=== PATIENT | male | born 1960 | race Caucasian/White ===

== ENCOUNTER 2017-05-16 17:42 | Observation (INO) ==
[2017-05-16 20:05] LABS: Basophils % 0.4 %; Eosinophils # 0.4 K/mcL (0.0-0.6); Eosinophils % 4.8 %; Hematocrit 42.2 % (37.5-50.1); Hemoglobin 13.5 g/dL (12.9-16.9); Immature Granulocytes % 0.2 % (0-4); Immature Platelets 3.9 % (1.1-6.1); Lymphocytes # 2.6 K/mcL (0.6-4.6); Lymphocytes % 31.9 %; Mean Corpuscular Hemoglobin 29.4 pg (28.0-33.3); Mean Corpuscular Volume 91.9 fL (83.0-100.0); Mean Platelet Volume 9.8 fL (9.4-12.4); Monocytes # 0.7 K/mcL (0.0-1.3); Monocytes % 8.5 %; Neutrophils # 4.4 K/mcL (1.6-8.9); Platelet Count 213 K/mcL (140-400); Red Blood Count 4.59 M/mcL (4.19-5.50); Red Cell Distribution Width 13.1 % (11.5-14.5); Segmented Neutrophils % 54.2 %
[2017-05-16 20:09] LABS: INR 1.1; Prothrombin Time 11.5 Seconds (9.4-12.1)
[2017-05-16 20:12] LABS: Activated Partial Thrombo Time 32.4 Seconds (26.0-36.0)
[2017-05-16 20:17] LABS: BUN/Creatinine Ratio 21 (6-26); Blood Urea Nitrogen 23 mg/dL (8-26); Calcium 9.3 mg/dL (8.6-10.8); Carbon Dioxide 26 mEq/L (19-29); Chloride 106 mEq/L (98-109); Glucose 98 mg/dL (70-99); Osmolality,Calculated 294 (280-300); Potassium 3.7 mEq/L (3.5-4.5); Sodium 140 mEq/L (136-145); eGFR For African Americans > 60 (> 60); eGFR For Non-African Americans > 60 (> 60)
--- NOTE | 2017-05-16 23:02 | Emergency Department Note ---
Disposition Clinical Impression: Arrhythmia Qualifiers: Arrhythmia type: unspecified cardiac arrhythmia Qualified Code(s): I49.9 - Cardiac arrhythmia, unspecified Disposition: Admitted As Inpatient Condition: Good Chest Pain HPI - General Chief Complaint: ED Chest Pain Stated Complaint: CP Time Seen by Provider: 05/16/17 20:25 Source: patient Limitations: no limitations Vital Signs Reviewed: Yes Nursing Notes Reviewed: Yes - History of Present Illness HPI Narrative: Patient presents today from preop clearance for evaluation of abnormal EKG. EKG in the emergency department shows sinus rhythm with concern for second- degree AV block. Patient has a history of coronary bypass. Patient has a history of hypertension and hyperlipidemia. Takes aspirin but is not otherwise anticoagulated. His had intermittent episodes where he feels dizzy but does not state significant in nature. Patient has not had chest pain or shortness of breath. Patient does have some residual tenderness from previous midline incision. Patient has chronic back and knee pain which she is requesting his home medication. Patient does have previous blood work from both [facility] as well as [facility]. Previous diagnosis of irregular heartbeat was atrial fibrillation. Patient's baseline was very irregular and hard to distinguish any sort of P waves. EKG today is much more clear with irregularly spaced P waves in correlation to the QRS. Patient's initial blood work will be drawn and compared to previous. If blood work is normal discuss with cardiology disposition. Severity scale (1-10): 0 - Related Data Home Medications Medication Instructions Recorded Confirmed Albuterol Neb [Proventil Neb] 2.5 mg IH Q4HR 10/31/15 05/17/17 Albuterol Sulfate [Albuterol 1 - 2 puff IH Q4HR 10/31/15 05/17/17 Inhaler] Aspirin 325 mg PO DAILY 10/31/15 05/17/17 Budesonide/Formoterol 160/4.5 2 puff IH BIDR 10/31/15 05/17/17 [Symbicort 160/4.5] Calcium Acetate [Phos-LO] 1,334 mg PO TIDWM 10/31/15 05/17/17 Carvedilol [Coreg] 25 mg PO BID 10/31/15 05/17/17 Cholecalciferol (Vitamin D3) 2,000 unit PO DAILY 10/31/15 05/17/17 [Vitamin D3] Cilostazol [Pletal] 100 mg PO BID 10/31/15 05/17/17 Dapagliflozin Propanediol [Farxiga] 5 mg PO DAILY 10/31/15 05/17/17 Docusate [Colace] 100 mg PO BID 10/31/15 05/17/17 Escitalopram [Lexapro] 10 mg PO DAILY 10/31/15 05/17/17 Ferrous Sulfate 325 mg PO BID 10/31/15 05/17/17 Fluticasone Propionate [Flovent 110 mcg IH BID 10/31/15 05/17/17 Hfa] Furosemide [Lasix] 40 mg PO BID 10/31/15 05/17/17 Gabapentin [Neurontin] 800 mg PO TID 10/31/15 05/17/17 Insulin ASPART [Novolog Flexpen] 14 - 18 unit SQ TIDWM 10/31/15 05/17/17 Insulin Glargine,Hum.rec.anlog 40 unit SQ QPM 10/31/15 05/17/17 [Lantus Solostar] Insulin Glargine,Hum.rec.anlog 42 unit SQ QAM 10/31/15 05/17/17 [Lantus Solostar] Loratadine [Claritin] 10 mg PO DAILY 10/31/15 05/17/17 Magnesium Oxide [Magnesium] 400 mg PO TID 10/31/15 05/17/17 Meclizine [Antivert] 25 mg PO DAILY PRN 10/31/15 05/17/17 Montelukast [Singulair] 10 mg PO DAILY 10/31/15 05/17/17 Omeprazole [PriLOSEC] 20 mg PO DAILY 10/31/15 05/17/17 Ondansetron HCl [Zofran] 4 mg PO Q8H PRN 10/31/15 05/17/17 Oxycodone HCl 20 mg PO TID 10/31/15 05/17/17 Pravastatin Sodium [Pravachol] 20 mg PO DAILY 10/31/15 10/31/15 Sennosides/Docusate Sodium [Senna 2 tab PO HS 10/31/15 05/17/17 Plus] Sodium Bicarbonate 1,300 mg PO TID 10/31/15 05/17/17 Tamsulosin [Flomax] 0.8 mg PO DAILY 10/31/15 05/17/17 Allergies Allergy/AdvReac Type Severity Reaction Status Date / Time clopidogrel [From Plavix] Allergy Hives Verified 05/16/17 16:49 Review of Systems: CONSTITUTIONAL: No weight loss, fever, chills, weakness or fatigue. HEENT: Eyes: No visual changes. Ears, Nose, Throat: No hearing loss, difficulty talking or unable to swallow. SKIN: No rash or itching. CARDIOVASCULAR: No chest pain, chest pressure or chest discomfort. No palpitations or edema. RESPIRATORY: No shortness of breath, cough or sputum. GASTROINTESTINAL: No anorexia, nausea, vomiting or diarrhea. No abdominal pain or blood. GENITOURINARY: No burning on urination or hematuria. NEUROLOGICAL: Occasional dizziness No headache, syncope, paralysis, ataxia, numbness or tingling in the extremities. No change in bowel or bladder control. MUSCULOSKELETAL: Chronic back pain Chest Pain PMH - Past Medical History Medical history: Reports: COPD, coronary artery disease, diabetes, GERD, hyperlipidemia, hypertension, myocardial infarction, renal disease, other Psychiatric history: Reports: no psych history - Social History Smoking Status: Never smoker Alcohol use: Reports: rarely Drug use: Reports: none Physical Exam General appearance: NAD, conversant Eyes: anicteric sclerae, moist conjunctivae; PERRL HENT: Atraumatic; oropharynx clear with moist mucous membranes and no mucosal ulcerations Neck: Normal inspection; Trachea midline; FROM, supple Lungs: CTA, with normal respiratory effort and no intercostal retractions CV: irregular no rubs or murmurs Abdomen: Soft, non-tender; no rebound or gaurding Extremities: No peripheral edema or extremity lymphadenopathy Skin: Normal temperature; no rash, ulcers or lesions Psych: Appropriate mood and affect Neuro: alert and oriented to person, place and time - General Limitations: no limitations General appearance: alert Course - Consultations Consultation #1: Discussed with cardiology. Patient has grouped beats with appearance of second- degree block. They recommend keeping the patient on telemetry with them consult and tomorrow. Vital Signs Temperature 98 F 05/16/17 18:13 Pulse Rate 73 05/16/17 18:13 Respiratory Rate 16 05/16/17 18:13 Blood Pressure 125/87 05/16/17 18:13 O2 Sat by Pulse Oximetry 98 05/16/17 18:13 Temperature 97.6 F 05/17/17 03:32 Pulse Rate 92 05/17/17 03:32 Respiratory Rate 18 05/17/17 03:32 Blood Pressure 188/99 05/17/17 03:32 O2 Sat by Pulse Oximetry 94 05/17/17 03:32 Oxygen Delivery Oxygen Delivery Room Air Chest Pain - Medical Records Medical records reviewed: Yes I reviewed the patient's medical records. - Lab Data Lab results reviewed: Yes I reviewed the patient's lab results. Result diagrams: 05/16/17 19:56 05/16/17 19:56 Lab Results 05/16/17 05/16/17 05/16/17 Range/Units 19:56 19:56 19:56 WBC 8.1 (4.3-11.1) K/mcL RBC 4.59 (4.19-5.50) M/mcL Hgb 13.5 (12.9-16.9) g/dL Hct 42.2 (37.5-50.1) % MCV 91.9 (83.0-100.0) fL MCH 29.4 (28.0-33.3) pg MCHC 32.0 (31.6-35.5) g/dL RDW 13.1 (11.5-14.5) % Plt Count 213 (140-400) K/mcL MPV 9.8 (9.4-12.4) fL Immature Gran % 0.2 (0-4) % Seg Neutrophils % 54.2 % Lymphocytes % 31.9 % Monocytes % 8.5 % Eosinophils % 4.8 % Basophils % 0.4 % Neutrophils # 4.4 (1.6-8.9) K/mcL Lymphocytes # 2.6 (0.6-4.6) K/mcL Monocytes # 0.7 (0.0-1.3) K/mcL Eosinophils # 0.4 (0.0-0.6) K/mcL Basophils # 0.0 (0.0-0.2) K/mcL Immature Plt Fraction 3.9 (1.1-6.1) % PT 11.5 (9.4-12.1) Seconds INR 1.1 APTT 32.4 (26.0-36.0) Seconds Sodium (136-145) mEq/L Potassium (3.5-4.5) mEq/L Chloride (98-109) mEq/L Carbon Dioxide (19-29) mEq/L BUN (8-26) mg/dL Creatinine (0.72-1.25) mg/dL Est GFR ( Amer) (> 60) Est GFR (Non-Af Amer) (> 60) BUN/Creatinine Ratio (6-26) Glucose (70-99) mg/dL Calculated Osmolality (280-300) Calcium (8.6-10.8) mg/dL Troponin I (0-0.03) ng/mL B-Natriuretic Peptide 168 H (0-100) pg/mL 05/16/17 05/16/17 Range/Units 19:56 19:56 WBC (4.3-11.1) K/mcL RBC (4.19-5.50) M/mcL Hgb (12.9-16.9) g/dL Hct (37.5-50.1) % MCV (83.0-100.0) fL MCH (28.0-33.3) pg MCHC (31.6-35.5) g/dL RDW (11.5-14.5) % Plt Count (140-400) K/mcL MPV (9.4-12.4) fL Immature Gran % (0-4) % Seg Neutrophils % % Lymphocytes % % Monocytes % % Eosinophils % % Basophils % % Neutrophils # (1.6-8.9) K/mcL Lymphocytes # (0.6-4.6) K/mcL Monocytes # (0.0-1.3) K/mcL Eosinophils # (0.0-0.6) K/mcL Basophils # (0.0-0.2) K/mcL Immature Plt Fraction (1.1-6.1) % PT (9.4-12.1) Seconds INR APTT (26.0-36.0) Seconds Sodium 140 (136-145) mEq/L Potassium 3.7 (3.5-4.5) mEq/L Chloride 106 (98-109) mEq/L Carbon Dioxide 26 (19-29) mEq/L BUN 23 (8-26) mg/dL Creatinine 1.08 (0.72-1.25) mg/dL Est GFR ( Amer) > 60 (> 60) Est GFR (Non-Af Amer) > 60 (> 60) BUN/Creatinine Ratio 21 (6-26) Glucose 98 (70-99) mg/dL Calculated Osmolality 294 (280-300) Calcium 9.3 (8.6-10.8) mg/dL Troponin I 0.01 (0-0.03) ng/mL B-Natriuretic Peptide (0-100) pg/mL - Radiology Data Radiology results reviewed: Yes I reviewed the patient's radiology results. - EKG Data EKG attestation: Yes I reviewed and interpreted this EKG. EKG results narrative: EKG shows sinus rhythm with second-degree AV block concern for Mobitz type II. Ventricular rate 71. QRS 106. QTC 453. EKG change from previous of atrial fibrillation with abnormal baseline. On the rhythm strip there are P waves are present however there is irregularly spacing and not correlate to the QRS. It appeared to be grouped several groupings. Attestation Statement - Attestation Attestation: I examined this patient and my medical decision-making was reviewed with the Resident Physician, Dr. Page. I agree with the documented findings, disposition and treatment plan as described except to the extent set forth below. Patient is a pleasant 56-year-old white male who presents to the emergency department today sent from the outpatient lab area for an abnormal EKG. Patient was there for preop clearance with labs and EKG to be done. Patient has been feeling fine he denies any concerning symptoms today no chest pain pressure or heaviness no shortness of breath, no palpitations, no lightheadedness or dizziness, no syncopal episodes, no abdominal pain or back pain. Patient has history of reported atrial fibrillation, is on aspirin but no other anticoagulants. Patient's vital signs are stable on arrival and he is in no acute distress. I agree with pt's Physical exam findings as documented. Patient's EKG shows Mobitz secondary AV block. This is a new finding compared to prior EKGs. Patient's lab evaluation and chest x-ray are both unremarkable. We contacted Dr. Solano who is on for cardiology this evening and reviewed the EKG with him. He recommended that the patient be admitted to the hospital and they will consult to see the patient in the morning. Case was discussed with the hospitalist who accepted the patient for admission.
[2017-05-16] MEDS ORDERED: *HR* OxyCODONE Immed Rel 5 MG TABLET PO ONE (23:06)
[2017-05-16] MEDS ORDERED: *HR* Dextrose 50 % in Water (Syg) 50 ML SYRINGE IVP PRN (23:26)
[2017-05-16] MEDS ORDERED: D5% in Water 1,000 ML IVC PRN (23:26)
[2017-05-16] MEDS ORDERED: Dextrose Gel 15 GM PO PRN ×2 (23:26)
[2017-05-17] MEDS: Albuterol 2.5 MG/3 ML NEBULIZER IH SCH ×6 (03:46→23:09)
[2017-05-17] MEDS ORDERED: *HR* OxyCODONE Immed Rel 15 MG TABLET PO PRN (06:21)
[2017-05-17] MEDS: OxyCODONE Immed Rel 15 MG, OxyCODONE Immed Rel 5 MG PO PRN ×3 (07:23→23:18)
[2017-05-17] MEDS ORDERED: Insulin DETEMIR 100 UNIT/ML X5UNITS SQ SCH ×2 (09:00→09:45)
[2017-05-17] MEDS: Aspirin 325 MG TABLET PO SCH (09:01)
[2017-05-17] MEDS: Insulin LISPRO 300 UNITS/3 ML VIAL SQ SCH ×5 (09:01→17:19)
[2017-05-17] MEDS ORDERED: Ondansetron ODT 4 MG TAB.RAPDIS PO PRN (09:11)
[2017-05-17] MEDS ORDERED: Budesonide/Formoterol 80/4.5 MDI IH SCH (09:15)
[2017-05-17] MEDS ORDERED: NON-FORMULARY MEDICATION 1 EACH EACH (Oxycodone Hcl [Oxycodone Hcl] 20 MG) PO SCH (09:15)
[2017-05-17] MEDS ORDERED: INSULIN DEGLUDEC SQ SCH (09:15)
[2017-05-17] MEDS ORDERED: Beclomethasone 80mcg MDI IH SCH (10:00)
[2017-05-17] MEDS ORDERED: Budesonide/Formoterol 160/4.5 MDI IH SCH (10:00)
[2017-05-17] MEDS: Budesonide/Formoterol 80/4.5 MDI IH SCH ×2 (10:26→20:04)
[2017-05-17] MEDS: Fluticasone Propionate Nasal 50 MCG/SPRAY BOTTLE NS SCH (11:16)
[2017-05-17] MEDS: Furosemide 40 MG TABLET PO SCH ×2 (11:17→17:18)
[2017-05-17] MEDS: Loratadine 10 MG TABLET PO SCH (11:17)
[2017-05-17] MEDS: Magnesium Oxide 400 MG TABLET PO SCH ×3 (11:18→20:33)
[2017-05-17] MEDS: Gabapentin 400 MG CAPSULE PO SCH ×3 (11:18→20:33)
[2017-05-17] MEDS: Cholecalciferol (D-3) 1,000 UNIT TABLET PO SCH (11:18)
[2017-05-17] MEDS: Calcium Acetate 667 MG CAPSULE PO SCH ×2 (11:23→17:18)
--- NOTE | 2017-05-17 12:03 | Cardiology Consult Note ---
Date of Encounter: 05/17/17 Time of Encounter: 11:00 Assessment and Plan (1) Pre-operative cardiovascular examination Current Visit: Yes Status: Acute Known h/o CAD. LHC one year ago showed patent 3/3 bypass grafts. Denies CV symptoms. WIll check TTE. EKG shows SR 1st degree block. Patient has long history of this . Beta-mara discontinued. If no change in LV function he will be acceptable risk for surgery. (2) First degree atrioventricular block by electrocardiogram Current Visit: Yes Status: Acute EKG shows SR with first degree AV block. PAC and small sinus pauses or block PAC seen. No significant pauses. 24 hour telemetry review shows SR with first degree AV block. Occasional blocked PAC. Avg HR 78 bpm. Min HR is 50 bpm. Patient has history of first degree AV block. [place] appears to be longer than previous. Patient is asymptomatic.No afib seen and patient denies history of afib. Recommend stopping carvedilol. (3) CAD (coronary artery disease) Current Visit: No Status: Chronic H/o 3V CABG and previous PCI. Last LHC at [facility] one year ago showed patent bypass grafts. Denies chest pain. Continue asa and statin. No bb due to prolonged first degree block. Qualifiers: Coronary Disease-Associated Artery/Lesion type: [place] artery [place] vs. transplanted heart: [place] heart Associated angina: without angina Qualified Code(s): I25.10 - Atherosclerotic heart disease of [place] coronary artery without angina pectoris Discussion w patient/family: The assessment and plan as outlined above was discussed with the patient and/or family members who expressed understanding and agreement. All questions were answered. Thank you for involving us in the care of your patient. Please call with any questions. History of Present Illness Consult date: 05/17/17 Requesting physician: Jordan Hernandez Consult reason: abnormal EKG Chief complaint: Abnormal EKG History of present illness: Mr. Borges is a 56 year old male with a history of 3V CABG in 2012, previous PCI, DCHF, HTN, HLD, and DM type II. He was sent from [facility] office when he was seen to have an abnormal EKG thought to be afib. Once in ER he was confirmed to not have afib but possible second degree block. Cardiology consulted for evaluation. Patient denies chest pain, SOB, or palpitations. Denies orthopnea, weight gain, or PND. C/o RLE edema after injury. Reports 20 lb weight loss in the past two months due to dieting. He has occasional dizziness when standing too quickly. Denies history of afib. He follows at [facility] for cardiology. He was seen one year ago for syncopal episode. He was found to have bradycardia and his beta-mara was discontinued. Since that time he was restarted on low dose carvedilol. Denies recurrent syncopal event. Previous cardiac testing- TTE-10/2015- EF 55-60%. Mild MR. Moderate diastolic dysfunction. LHC 04/21/16 at [facility]- Normal LV Ao gradient. Moderatley elevated LVEDP, 24-25 mmHg. Severe three vessel CAD. 3/3 patent bypass grafts patent (SVG- OM1, SVG- PDA, HAUSER- LAD). Past Med Surg Social Fam HX - Past Medical History Medical history: COPD, coronary artery disease, diabetes, GERD, hyperlipidemia, hypertension, renal disease, other Psychiatric history: no psych history - Social History Smoking Status: Never smoker Smokeless Tobacco Status: No Alcohol use: rarely Drug use: none - Family History Father Living Status: Age at : 78 Hx Family Cardiac Disorders: Yes Mother Living Status: Age at : 78 Hx Family Musculoskeletal Disorders: Yes Medications and Allergies Albuterol Neb [Proventil Neb] 2.5 mg IH Q4HR 10/31/15 [History] Albuterol Sulfate [Albuterol Inhaler] 1 - 2 puff IH Q4HR 10/31/15 [History] Aspirin 325 mg PO DAILY 10/31/15 [History] Calcium Acetate [Phos-LO] 1,334 mg PO TIDWM 10/31/15 [History] Cholecalciferol (Vitamin D3) [Vitamin D3] 2,000 unit PO DAILY 10/31/15 [History] Docusate [Colace] 100 mg PO BID 10/31/15 [History] Escitalopram [Lexapro] 10 mg PO DAILY 10/31/15 [History] Ferrous Sulfate 325 mg PO BID 10/31/15 [History] Fluticasone Propionate [Flovent Hfa] 110 mcg IH BID 10/31/15 [History] Furosemide [Lasix] 40 mg PO BID 10/31/15 [History] Gabapentin [Neurontin] 800 mg PO TID 10/31/15 [History] Insulin ASPART [Novolog Flexpen] 14 - 18 unit SQ TIDWM 10/31/15 [History] Loratadine [Claritin] 10 mg PO DAILY 10/31/15 [History] Magnesium Oxide [Magnesium] 400 mg PO TID 10/31/15 [History] Meclizine [Antivert] 25 mg PO DAILY PRN 10/31/15 [History] Montelukast [Singulair] 10 mg PO DAILY 10/31/15 [History] Omeprazole [PriLOSEC] 20 mg PO DAILY 10/31/15 [History] Ondansetron HCl [Zofran] 4 mg PO Q8H PRN 10/31/15 [History] Oxycodone HCl 20 mg PO TID 10/31/15 [History] Sennosides/Docusate Sodium [Senna Plus] 2 tab PO HS 10/31/15 [History] Sodium Bicarbonate 1,300 mg PO TID 10/31/15 [History] Tamsulosin [Flomax] 0.8 mg PO DAILY 10/31/15 [History] Atorvastatin [Lipitor] 40 mg PO HS 05/17/17 [History] Budesonide/Formoterol 80/4.5 [Symbicort 80/4.5] 2 puff IH BID 05/17/17 [History ] Dapagliflozin Propanediol [Farxiga] 10 mg PO DAILY 05/17/17 [History] Insulin Degludec [Tresiba Flextouch U-200] 82 units SQ DAILY 05/17/17 [History] rOPINIRole [Requip] 1 mg PO HS 05/17/17 [History] 3 Allergy/AdvReac Type Severity Reaction Status Date / Time clopidogrel [From Plavix] Allergy Hives Verified 05/16/17 16:49 All Systems Review: A 10-system review of systems was performed and is negative for pertinent findings except as documented above in the HPI. Physical Examination Vital Signs, Last 4 Hours Temp Pulse Resp BP Pulse Ox 05/17/17 11:01 97.9 F 111 18 152/66 97 General: Conversant, No Apparent Distress HEENT: Atraumatic, Normocephaly, Mucus Membranes Moist Neck: No JVD, Normal carotid pulses Cardiac: Reg Rate and Rhythm, Normal S1 and S2, No Murmur Lungs: Normal Breath Sounds, No Wheeze, Rales, Rhonchi Neuro: Alert and responsive, No focal deficits noted Abdomen: Soft, Non-Tender Skin: No rashes noted on visualized skin Musculoskeletal: No Chest Wall Tenderness Extremities: No Clubbing, No Cyanosis, No Edema, Normal Pulses Results 05/16/17 19:56 05/16/17 19:56 - Imaging and Cardiology Echo: report reviewed Cardiac cath: report reviewed - EKG Interpretation EKG results cardiology: personally reviewed Consult Discharge Plan - Plan Referrals: César Yuan MD [Primary Care Provider] -
--- NOTE | 2017-05-17 13:45 | Internal Med History&Physical ---
Date of Encounter: 05/17/17 Time of Encounter: 08:30 Assessment and Plan (1) First degree atrioventricular block by electrocardiogram Current visit: Yes Status: Chronic Place in observation. Echo today Avoid AVN blocking agents Appreciate cardiology input. Anticipate discharge after completion of echo if no other issues - either today or in AM. (2) CAD (coronary artery disease) Current visit: No Status: Chronic Continue home meds Avoid AVN blocking agents Qualifiers: Coronary Disease-Associated Artery/Lesion type: [place] artery [place] vs. transplanted heart: [place] heart Associated angina: without angina Qualified Code(s): I25.10 - Atherosclerotic heart disease of [place] coronary artery without angina pectoris (3) Diabetes mellitus, type II Current visit: No Status: Chronic Continue accuchecks and coverage Qualifiers: Diabetes mellitus complication status: with unspecified complications Diabetes mellitus intermediate accountant insulin use: without intermediate accountant use Qualified Code( s): E11.8 - Type 2 diabetes mellitus with unspecified complications (4) Chronic back pain Current visit: Yes Status: Chronic Continue home meds Qualifiers: Back pain location: low back pain Back pain laterality: bilateral Sciatica presence: unspecified whether sciatica present Qualified Code(s): M54.5 - Low back pain; G89.29 - Other chronic pain; G89.29 - Other chronic pain Internal Medicine - H&P: HPI Chief complaint: abnormal EKG Admitted From: Emergency Dept Plans for Post Hospital Care: Home History of present illness: Mr. Borges is a 56 year old male with hx of CAD s/p CABG as well as HTN sent to ED from [facility] due to abnormal EKG. He was being seen for planned achilles tendon repair. EKG at [facility] was concerning for a fib and repeat in ED was concerning for second degree Mobitz 2 block. He denied CP, SOB, cough or any other symptoms. In ED he was evaluated and placed in observation. At this time he is resting comfortably. He has no complaints. Past Med Surg Social Fam HX - Past Medical History Medical history: COPD, coronary artery disease, diabetes, GERD, hyperlipidemia, hypertension, renal disease, other Psychiatric history: no psych history - Past Surgical History Surgical History: coronary bypass (CABG) - Social History Smoking Status: Never smoker Smokeless Tobacco Status: No Alcohol use: rarely Drug use: none - Family History Father Living Status: Age at : 78 Hx Family Cardiac Disorders: Yes Mother Living Status: Age at : 78 Hx Family Musculoskeletal Disorders: Yes Internal Medicine - H&P: Meds Albuterol Neb [Proventil Neb] 2.5 mg IH Q4HR 10/31/15 [History] Albuterol Sulfate [Albuterol Inhaler] 1 - 2 puff IH Q4HR 10/31/15 [History] Aspirin 325 mg PO DAILY 10/31/15 [History] Calcium Acetate [Phos-LO] 1,334 mg PO TIDWM 10/31/15 [History] Cholecalciferol (Vitamin D3) [Vitamin D3] 2,000 unit PO DAILY 10/31/15 [History] Docusate [Colace] 100 mg PO BID 10/31/15 [History] Escitalopram [Lexapro] 10 mg PO DAILY 10/31/15 [History] Ferrous Sulfate 325 mg PO BID 10/31/15 [History] Fluticasone Propionate [Flovent Hfa] 110 mcg IH BID 10/31/15 [History] Furosemide [Lasix] 40 mg PO BID 10/31/15 [History] Gabapentin [Neurontin] 800 mg PO TID 10/31/15 [History] Insulin ASPART [Novolog Flexpen] 14 - 18 unit SQ TIDWM 10/31/15 [History] Loratadine [Claritin] 10 mg PO DAILY 10/31/15 [History] Magnesium Oxide [Magnesium] 400 mg PO TID 10/31/15 [History] Meclizine [Antivert] 25 mg PO DAILY PRN 10/31/15 [History] Montelukast [Singulair] 10 mg PO DAILY 10/31/15 [History] Omeprazole [PriLOSEC] 20 mg PO DAILY 10/31/15 [History] Ondansetron HCl [Zofran] 4 mg PO Q8H PRN 10/31/15 [History] Oxycodone HCl 20 mg PO TID 10/31/15 [History] Sennosides/Docusate Sodium [Senna Plus] 2 tab PO HS 10/31/15 [History] Sodium Bicarbonate 1,300 mg PO TID 10/31/15 [History] Tamsulosin [Flomax] 0.8 mg PO DAILY 10/31/15 [History] Atorvastatin [Lipitor] 40 mg PO HS 05/17/17 [History] Budesonide/Formoterol 80/4.5 [Symbicort 80/4.5] 2 puff IH BID 05/17/17 [History ] Dapagliflozin Propanediol [Farxiga] 10 mg PO DAILY 05/17/17 [History] Insulin Degludec [Tresiba Flextouch U-200] 82 units SQ DAILY 05/17/17 [History] rOPINIRole [Requip] 1 mg PO HS 05/17/17 [History] 3 Allergy/AdvReac Type Severity Reaction Status Date / Time clopidogrel [From Plavix] Allergy Hives Verified 05/16/17 16:49 All Systems PM: A 10-system review of systems was performed and is negative for pertinent findings except as documented above in the HPI. - Constitutional Constitutional: no chills, no fatigue, no malaise - EENT Eyes: no diplopia, no dry eye, no loss of vision Ears: no decreased hearing Nose, mouth and throat: no dry mouth, no mouth pain, no sore throat - Cardiovascular Cardiovascular ROS IM: no chest pain, no dyspnea, no dyspnea on exertion, no edema, no orthopnea, no syncope - Respiratory Respiratory: no cough, no dyspnea on exertion, no wheezing - Gastrointestinal Gastrointestinal: no abdominal pain, no constipation, no diarrhea, no melena - Genitourinary Genitourinary ROS male: no dysuria, no scrotal swelling, no urinary incontinence - Musculoskeletal Musculoskeletal ROS IM: arthralgias, back pain, limited range of motion, no numbness - Integumentary Integumentary IM: no erythema, no rash - Neurological Neurological ROS: restless legs, no confusion, no dizziness, no numbness - Endocrine Endocrine IM: no cold intolerance, no heat intolerance - Hematologic/Lymphatic Hematologic/Lymphatic: no easy bleeding - Allergic/Immunologic Allergic/Immunologic: no itchy eyes - Constitutional Vitals: Temp Pulse Resp BP Pulse Ox 97.9 F 111 18 152/66 97 05/17/17 11:01 05/17/17 11:01 05/17/17 11:01 05/17/17 11:01 05/17/17 11:01 General appearance: Present: A&O X 3, answers questions appropriately - Head Head exam: Present: atraumatic, normocephalic - Eye Eye exam: Present: EOMI, PERRL, conjuntiva pink - ENT ENT exam: Present: mucous membranes moist - Neck Neck exam general surgery: Absent: lymphadenopathy, thyromegaly - Respiratory Respiratory exam: Present: decreased breath sounds, rhonchi. Absent: rales, wheezes - Cardiovascular Cardiovascular exam: Present: bradycardia, irregular rhythm - GI/Abdominal GI/Abdominal exam: Present: soft. Absent: mass, tenderness - Extremities Exam Extremities exam: Present: warm. Absent: tenderness - Neurological Exam Neurological exam: Present: alert, oriented X3, no focal deficits - Skin Skin exam: Present: dry, warm. Absent: rash Internal Med - H&P Results - Labs CBC & Chem 7: 05/16/17 19:56 05/16/17 19:56
--- NOTE | 2017-05-17 18:00 | Electrocardiograph Report ---
[place] [id number] Test Date: 2017-05-16 Pat Name: Erik Borges Department: 103 Room: 2A25 Gender: M Salesperson Wigs: FELIZ : 1960 Requested By: Mauricio Vieira Order Number: [id number] Reading MD: Ra Soares MD Measurements Intervals [place] Rate: 71 P: CA: 0 QRS: -47 QRSD: 106 T: 59 QT: 431 QTc: 453 Interpretive Statements SINUS RHYTHM WITH 2ND DEGREE AV BLOCK, MOBITZ TYPE I LEFT ANTERIOR FASCICULAR BLOCK Poor R wave progression Electronically Signed On 05-17-2017 17:58:47 EST by Ra Soares MD
[2017-05-17] MEDS ORDERED: Insulin LISPRO 300 UNITS/3 ML VIAL SQ SCH (21:00)
[2017-05-17] MEDS ORDERED: rOPINIRole 1 MG TABLET PO SCH (21:00)
[2017-05-17] MEDS ORDERED: Sennosides/Docusate Sodium TABLET PO SCH (21:00)
[2017-05-18] MEDS: Albuterol 2.5 MG/3 ML NEBULIZER IH SCH ×3 (03:54→08:16)
[2017-05-18] MEDS ORDERED: Albuterol 2.5 MG/3 ML NEBULIZER IH PRN (08:02)
[2017-05-18] MEDS: Budesonide/Formoterol 80/4.5 MDI IH SCH (08:03)
[2017-05-18] MEDS: Calcium Acetate 667 MG CAPSULE PO SCH ×2 (08:47→12:08)
[2017-05-18] MEDS: Loratadine 10 MG TABLET PO SCH (08:47)
[2017-05-18] MEDS: Magnesium Oxide 400 MG TABLET PO SCH (08:48)
[2017-05-18] MEDS: OxyCODONE Immed Rel 15 MG, OxyCODONE Immed Rel 5 MG PO PRN (08:48)
[2017-05-18] MEDS: Furosemide 40 MG TABLET PO SCH (08:48)
[2017-05-18] MEDS: Cholecalciferol (D-3) 1,000 UNIT TABLET PO SCH (08:48)
[2017-05-18] MEDS: Fluticasone Propionate Nasal 50 MCG/SPRAY BOTTLE NS SCH (08:49)
[2017-05-18] MEDS: Aspirin 325 MG TABLET PO SCH (08:49)
[2017-05-18] MEDS: Gabapentin 400 MG CAPSULE PO SCH (08:49)
[2017-05-18] MEDS: Insulin LISPRO 300 UNITS/3 ML VIAL SQ SCH ×4 (08:50→12:08)
[2017-05-18] MEDS ORDERED: Insulin DETEMIR 100 UNIT/ML X5UNITS SQ SCH (09:00)
--- NOTE | 2017-05-18 10:02 | Cardiology Progress Note ---
Date of Encounter: 05/18/17 Time of Encounter: 10:00 Assessment and Plan (1) Pre-operative cardiovascular examination Current Visit: Yes Status: Acute Known h/o CAD. LHC one year ago showed patent 3/3 bypass grafts. Denies CV symptoms. EKG shows SR with profound 1st degree block. Seen on previous EKG. Echocardiogram completed and shows preserved LV function. No WMA. LVEF 60%. Mild mitral regurgitation. No indication for further testing. Patient is and intermediate risk for planned surgery. (2) First degree atrioventricular block by electrocardiogram Current Visit: Yes Status: Chronic EKG shows SR with profound first degree AV block. PAC and small sinus pauses or block PAC seen. 1st degree block seen on prior EKG. No significant pauses. 24 hour telemetry review shows SR with first degree AV block. Occasional blocked PAC seen. Avg HR 82 bpm. Min HR is 52 bpm at 1750. Patient is asymptomatic. Avoid AV rama blockers. Will schedule with [facility] for out-pt f/u. (3) CAD (coronary artery disease) Current Visit: No Status: Chronic H/o 3V CABG and previous PCI. Last LHC at [facility] one year ago showed patent bypass grafts. Denies chest pain. Continue asa and statin. No bb due to prolonged first degree block. Qualifiers: Coronary Disease-Associated Artery/Lesion type: [place] artery [place] vs. transplanted heart: craig heart Associated angina: without angina Qualified Code(s): I25.10 - Atherosclerotic heart disease of [place] coronary artery without angina pectoris Discussion w patient/family: The assessment and plan as outlined above was discussed with the patient and/or family members who expressed understanding and agreement. All questions were answered. Thank you for involving us in the care of your patient. Please call with any questions. Objective Vital Signs, Last 4 Hours Temp Pulse Resp BP Pulse Ox 05/18/17 08:21 97.9 F 97 16 119/65 96 05/18/17 08:06 16 96 Results 05/16/17 19:56 05/16/17 19:56 Chest X-Ray 05/16/17 18:17 IMPRESSION: No acute process. D/ / Osbaldo Maxwell MD / Osbaldo Maxwell MD Interpreting Provider: Osbaldo Maxwell MD Echocardiogram 05/17/17 12:02 Impressions: LVEF 60%. Normal LV chamber size and function. Asymmetric hypertrophy of the basal septum. No LVOT obstruction. Atypical septal motion consistent with post-operative status. Indeterminate diastolic function. Normal right ventricular structure and function. Mild mitral regurgitation. No evidence of pulmonary hypertension. Left Ventricular Wall Motion: Rest Echo Findings All wall segments showed normal motion. Consult Discharge Plan - Plan Referrals: César Yuan MD [Primary Care Provider] - 05/25/17 9:45 am (YOUR APPOINTMENT FOR has been cancelled and everything will be addressed at your appointment. Thank you!!)
--- NOTE | 2017-05-18 11:57 | Discharge Summary ---
Date of Encounter: 05/18/17 Time of Encounter: 11:57 - Discharge Diagnosis (1) First degree atrioventricular block by electrocardiogram Priority: Primary Status: Chronic (2) CAD (coronary artery disease) Priority: Secondary Status: Chronic Qualifiers: Coronary Disease-Associated Artery/Lesion type: [place] artery [place] vs. transplanted heart: [place] heart Associated angina: without angina Qualified Code(s): I25.10 - Atherosclerotic heart disease of [place] coronary artery without angina pectoris (3) Chronic back pain Priority: Secondary Status: Chronic Qualifiers: Back pain location: low back pain Back pain laterality: bilateral Sciatica presence: unspecified whether sciatica present Qualified Code(s): M54.5 - Low back pain; G89.29 - Other chronic pain; G89.29 - Other chronic pain (4) Diabetes mellitus, type II Priority: Secondary Status: Chronic Qualifiers: Diabetes mellitus complication status: with unspecified complications Diabetes mellitus [employer] insulin use: without half-way use Qualified Code( s): E11.8 - Type 2 diabetes mellitus with unspecified complications - Discharge Medications Home Medications: Albuterol Neb [Proventil Neb] 2.5 mg IH Q4HR 10/31/15 [History] Albuterol Sulfate [Albuterol Inhaler] 1 - 2 puff IH Q4HR 10/31/15 [History] Aspirin 325 mg PO DAILY 10/31/15 [History] Calcium Acetate [Phos-LO] 1,334 mg PO TIDWM 10/31/15 [History] Cholecalciferol (Vitamin D3) [Vitamin D3] 2,000 unit PO DAILY 10/31/15 [History] Docusate [Colace] 100 mg PO BID 10/31/15 [History] Escitalopram [Lexapro] 10 mg PO DAILY 10/31/15 [History] Ferrous Sulfate 325 mg PO BID 10/31/15 [History] Fluticasone Propionate [Flovent Hfa] 110 mcg IH BID 10/31/15 [History] Furosemide [Lasix] 40 mg PO BID 10/31/15 [History] Gabapentin [Neurontin] 800 mg PO TID 10/31/15 [History] Insulin ASPART [Novolog Flexpen] 14 - 18 unit SQ TIDWM 10/31/15 [History] Loratadine [Claritin] 10 mg PO DAILY 10/31/15 [History] Magnesium Oxide [Magnesium] 400 mg PO TID 10/31/15 [History] Meclizine [Antivert] 25 mg PO DAILY PRN 10/31/15 [History] Montelukast [Singulair] 10 mg PO DAILY 10/31/15 [History] Omeprazole [PriLOSEC] 20 mg PO DAILY 10/31/15 [History] Ondansetron HCl [Zofran] 4 mg PO Q8H PRN 10/31/15 [History] Oxycodone HCl 20 mg PO TID 10/31/15 [History] Sennosides/Docusate Sodium [Senna Plus] 2 tab PO HS 10/31/15 [History] Sodium Bicarbonate 1,300 mg PO TID 10/31/15 [History] Tamsulosin [Flomax] 0.8 mg PO DAILY 10/31/15 [History] Atorvastatin [Lipitor] 40 mg PO HS 05/17/17 [History] Budesonide/Formoterol 80/4.5 [Symbicort 80/4.5] 2 puff IH BID 05/17/17 [History ] Dapagliflozin Propanediol [Farxiga] 10 mg PO DAILY 05/17/17 [History] Insulin Degludec [Tresiba Flextouch U-200] 82 units SQ DAILY 05/17/17 [History] rOPINIRole [Requip] 1 mg PO HS 05/17/17 [History] Allergies/Adverse Reactions: 3 Allergy/AdvReac Type Severity Reaction Status Date / Time clopidogrel [From Plavix] Allergy Hives Verified 05/16/17 16:49 Procedures/tests Complete & Pending: Procedures Performed prior 72 hours Category Date Time Status EV echocardiogram Routine Y 05/17/17 12:02 Completed Date of admission: 05/16/17 23:35 Primary care physician: César Yuan MD Consults: Cardiology: Dr. Rader Discharging clinician: Sue Davis Anticipated date of discharge: 05/18/17 - Patient Status Disposition: Home, Self-Care Condition: Good Functional capacity at discharge: uses cane/walker Overall status at discharge: patient is back to baseline - Discharge Instructions Follow Up With: César Yuan MD [Primary Care Provider] - 05/25/17 9:45 am (YOUR APPOINTMENT FOR has been cancelled and everything will be addressed at your Nov. 24th appointment. Thank you!!) Additional Instructions: Please follow up with your primary care physician, drag down within one week after your discharge from the hospital. Your home dose of carvedilol has been discontinued. Resume all other home medications as prescribed by your primary care physician. Please seek medical help immediately if chest pain occurs - Diet and Activity Activity: resume usual activities as tolerated Diet: diabetic diet, low salt diet Hospital course: Mr. Borges is a 56 year old male with PMH of CAD, S/p CABG, HTN, CHF, HLD who was sent from PAT office for evaluation of abnormal ECG. There was a concern for first degree AV block on EKG due to which cardiology was consulted. Pt was evaluated by cardiology and had a repeat 2D echo. Pt remained asymptomatic and outpatient follow up with EP cardiology is recommended. Pt's home dose of carvedilol has been discontinued. Pt is currently asymptomatic and will be discharged to home with follow up with PCP and cardiology. - Time Spent with Patient Total time spent providing and/or coordinating discharge services: Less than 30 minutes - Constitutional Vitals: Temp Pulse Resp BP Pulse Ox 98.5 F 78 14 117/67 97 05/18/17 11:23 05/18/17 11:23 05/18/17 11:23 05/18/17 11:23 05/18/17 11:23 General appearance: Present: A&O X 3, no acute distress, obese, answers questions appropriately - Head Head exam: Present: atraumatic, normocephalic - Eye Eye exam: Present: conjuntiva pink, sclera anicteric - Respiratory Respiratory exam: Present: CTAB. Absent: accessory muscle use, rales, rhonchi, wheezes - Cardiovascular Cardiovascular exam: Present: RRR, +S1, +S2. Absent: diastolic murmur, gallop, rubs, systolic murmur - GI/Abdominal GI/Abdominal exam: Present: normal bowel sounds, soft, no peritoneal signs. Absent: distended, tenderness - Extremities Exam Extremities exam: Present: warm, radial pulses palpable and symmetrical. Absent : calf tenderness - Neurological Exam Neurological exam: Present: alert, oriented X3
[2017-05-18] MEDS ORDERED: *HR* OxyCODONE Immed Rel 5 MG TABLET PO ONE (12:17)
[2017-05-19 00:28] VITALS: BP 97/54
== END 2017-05-18 13:32 | disposition home or self-care (01) ==
LOC: EMEROO 17:42 → 2ANU 17:42 → SUATTDRO 23:35 → 2ANU 05-17 00:25
PROVIDERS: ADMIT Internal Medicine; ATTEND Internal Medicine

== ENCOUNTER 2020-03-14 17:36 | Inpatient (IN) ==
[2020-03-14] MEDS ORDERED: Isovue-370 500 ML BOTTLE IVP ONE (18:00)
[2020-03-14] MEDS ORDERED: *HR* OxyCODONE Immed Rel 5 MG TABLET PO ONE (18:17)
[2020-03-14] MEDS ORDERED: Vancomycin 2,000 MG/520 ML IV.SOLN IVPB ONE (18:25)
[2020-03-14 18:34] LABS: Basophils % 0.3 %; Eosinophils # 0.5 K/mcL (0.0-0.6); Eosinophils % 5.2 %; Hematocrit 38.8 % (37.5-50.1); Hemoglobin 12.2 g/dL (12.9-16.9); Immature Granulocytes % 0.2 % (0-4); Lymphocytes # 1.8 K/mcL (0.6-4.6); Mean Corpuscular HGB Conc 31.4 g/dL (31.6-35.5); Mean Corpuscular Hemoglobin 29.5 pg (28.0-33.3); Mean Corpuscular Volume 93.9 fL (83.0-100.0); Mean Platelet Volume 9.7 fL (9.4-12.4); Monocytes # 0.9 K/mcL (0.0-1.3); Monocytes % 10.8 %; Neutrophils # 5.4 K/mcL (1.6-8.9); Platelet Count 180 K/mcL (140-400); Red Blood Count 4.13 M/mcL (4.19-5.50); Red Cell Distribution Width 12.4 % (11.5-14.5); Segmented Neutrophils % 62.5 %; White Blood Count 8.6 K/mcL (4.3-11.1)
[2020-03-14 18:43] LABS: BUN/Creatinine Ratio 24 (6-26); Blood Urea Nitrogen 25 mg/dL (8-23); Carbon Dioxide 28 mEq/L (23-29); Chloride 102 mEq/L (98-107); Glucose 100 mg/dL (70-105); Osmolality,Calculated 290 (280-300); Potassium 3.9 mEq/L (3.5-5.1); Sodium 138 mEq/L (136-145); eGFR For African Americans > 60 (> 60); eGFR For Non-African Americans > 60 (> 60)
[2020-03-14 19:47] LABS: C-Reactive Protein 68 mg/L (Less than 10)
[2020-03-14] MEDS ORDERED: Naloxone 0.4 MG/ML INJ IVP PRN (20:03)
[2020-03-14] MEDS ORDERED: Albuterol 2.5 MG/3 ML NEBULIZER IH PRN (20:05)
[2020-03-14] MEDS ORDERED: Fluticasone Propionate Nasal 50 MCG/SPRAY BOTTLE NS PRN (20:05)
[2020-03-14] MEDS ORDERED: Dextrose Gel 15 GM/37.5 ML TUBE PO PRN ×2 (20:08)
[2020-03-14] MEDS ORDERED: *HR* Dextrose 50 % in Water (Vial) 50 ML VIAL IVP PRN (20:08)
[2020-03-14] MEDS ORDERED: D5% in Water 1,000 ML IVC PRN (20:08)
[2020-03-14] MEDS ORDERED: 0.9 % Sodium Chloride 1,000 ML IVC SCH (20:15)
[2020-03-14 22:20] LABS: Estimated Average Glucose 235 mg/dl; Hemoglobin A1C 9.8 %
[2020-03-14] MEDS: Budesonide/Formoterol 80/4.5 1 PUFF INH IH SCH (22:20)
[2020-03-14] MEDS ORDERED: Ipratropium/Albuterol Neb 3 ML IH PRN (22:46)
[2020-03-14] MEDS ORDERED: Vancomycin 1,750 MG in 0.9 % Sodium Chloride 250 ML IVPB SCH (23:00)
[2020-03-14] MEDS: Piperacillin/Tazobactam 3.375 GM in 0.9 % Sodium Chloride Mini Bag 100 ML IVPB SCH (23:54)
[2020-03-14] MEDS: Sennosides/Docusate Sodium TABLET PO SCH (23:55)
[2020-03-14] MEDS: rOPINIRole 1 MG TABLET PO SCH (23:55)
[2020-03-14] MEDS: Magnesium Oxide 400 MG TABLET PO SCH (23:56)
[2020-03-14] MEDS: Gabapentin 400 MG CAPSULE PO SCH (23:56)
[2020-03-14] MEDS: Furosemide 40 MG TABLET PO SCH (23:58)
[2020-03-15 02:29] LABS: Basophils % 0.4 %; Eosinophils # 0.3 K/mcL (0.0-0.6); Eosinophils % 4.3 %; Hematocrit 36.4 % (37.5-50.1); Hemoglobin 11.1 g/dL (12.9-16.9); Immature Granulocytes % 0.3 % (0-4); Lymphocytes # 1.5 K/mcL (0.6-4.6); Lymphocytes % 20.6 %; Mean Corpuscular HGB Conc 30.5 g/dL (31.6-35.5); Mean Corpuscular Hemoglobin 28.7 pg (28.0-33.3); Mean Corpuscular Volume 94.1 fL (83.0-100.0); Mean Platelet Volume 10.2 fL (9.4-12.4); Monocytes # 0.8 K/mcL (0.0-1.3); Monocytes % 10.7 %; Neutrophils # 4.8 K/mcL (1.6-8.9); Platelet Count 198 K/mcL (140-400); Red Blood Count 3.87 M/mcL (4.19-5.50); Red Cell Distribution Width 12.6 % (11.5-14.5); Segmented Neutrophils % 63.7 %; White Blood Count 7.5 K/mcL (4.3-11.1)
[2020-03-15 02:48] LABS: BUN/Creatinine Ratio 22 (6-26); Blood Urea Nitrogen 25 mg/dL (8-23); Calcium 8.5 mg/dL (8.6-10.3); Carbon Dioxide 26 mEq/L (23-29); Chloride 100 mEq/L (98-107); Glucose 325 mg/dL (70-105); Osmolality,Calculated 293 (280-300); Sodium 133 mEq/L (136-145); eGFR For African Americans > 60 (> 60); eGFR For Non-African Americans > 60 (> 60)
[2020-03-15] MEDS: *HR* HYDROmorphone 2 MG/ML SYRINGE IVP PRN ×2 (04:48→13:28)
[2020-03-15] MEDS: *HR* Heparin 5,000 UNIT/ML VIAL SQ SCH ×3 (06:14→22:50)
[2020-03-15] MEDS: Vancomycin 1,750 MG/517.5 ML IV.SOLN IVPB SCH ×2 (06:14→19:51)
[2020-03-15] MEDS: Piperacillin/Tazobactam 3.375 GM in 0.9 % Sodium Chloride Mini Bag 100 ML IVPB SCH ×3 (09:12→23:49)
[2020-03-15] MEDS: Insulin LISPRO 300 UNITS/3 ML VIAL SQ SCH ×3 (09:12→17:05)
[2020-03-15] MEDS: Magnesium Oxide 400 MG TABLET PO SCH ×3 (09:12→22:52)
[2020-03-15] MEDS: Furosemide 40 MG TABLET PO SCH ×2 (09:12→17:04)
[2020-03-15] MEDS: Loratadine 10 MG TABLET PO SCH (09:12)
[2020-03-15] MEDS: Gabapentin 400 MG CAPSULE PO SCH ×3 (09:13→22:52)
[2020-03-15] MEDS: Aspirin 325 MG TABLET PO SCH (09:13)
[2020-03-15] MEDS: Budesonide/Formoterol 80/4.5 1 PUFF INH IH SCH ×2 (10:23→20:04)
[2020-03-15] MEDS ORDERED: Gadolinium Contrast Agent (WT Based) IV PRN (12:47)
[2020-03-15] MEDS: Calcium Acetate 667 MG CAPSULE PO SCH (17:04)
[2020-03-15] MEDS ORDERED: *HR* OxyCODONE Immed Rel 5 MG TABLET PO PRN (21:00)
[2020-03-15] MEDS: rOPINIRole 1 MG TABLET PO SCH (22:52)
[2020-03-15] MEDS: Sennosides/Docusate Sodium TABLET PO SCH (22:52)
[2020-03-16] MEDS: *HR* Heparin 5,000 UNIT/ML VIAL SQ SCH ×3 (05:12→23:49)
[2020-03-16] MEDS: Vancomycin 1,750 MG/517.5 ML IV.SOLN IVPB SCH (06:07)
[2020-03-16] MEDS: Budesonide/Formoterol 80/4.5 1 PUFF INH IH SCH ×2 (07:28→21:45)
[2020-03-16 08:47] LABS: Basophils % 0.5 %; Eosinophils # 0.5 K/mcL (0.0-0.6); Eosinophils % 8.3 %; Hematocrit 35.1 % (37.5-50.1); Hemoglobin 11.1 g/dL (12.9-16.9); Immature Granulocytes % 0.5 % (0-4); Lymphocytes # 1.2 K/mcL (0.6-4.6); Lymphocytes % 20.1 %; Mean Corpuscular HGB Conc 31.6 g/dL (31.6-35.5); Mean Corpuscular Hemoglobin 29.2 pg (28.0-33.3); Mean Corpuscular Volume 92.4 fL (83.0-100.0); Mean Platelet Volume 9.3 fL (9.4-12.4); Monocytes # 0.5 K/mcL (0.0-1.3); Monocytes % 7.3 %; Neutrophils # 3.9 K/mcL (1.6-8.9); Platelet Count 187 K/mcL (140-400); Red Cell Distribution Width 12.3 % (11.5-14.5); Segmented Neutrophils % 63.3 %; White Blood Count 6.2 K/mcL (4.3-11.1)
[2020-03-16 09:07] LABS: BUN/Creatinine Ratio 18 (6-26); Blood Urea Nitrogen 19 mg/dL (8-23); Calcium 8.9 mg/dL (8.6-10.3); Carbon Dioxide 27 mEq/L (23-29); Chloride 101 mEq/L (98-107); Glucose 306 mg/dL (70-105); Osmolality,Calculated 290 (280-300); Potassium 4.6 mEq/L (3.5-5.1); Sodium 133 mEq/L (136-145); eGFR For African Americans > 60 (> 60); eGFR For Non-African Americans > 60 (> 60)
[2020-03-16] MEDS: Insulin LISPRO 300 UNITS/3 ML VIAL SQ SCH ×3 (09:38→17:15)
[2020-03-16] MEDS: Calcium Acetate 667 MG CAPSULE PO SCH ×3 (09:39→17:19)
[2020-03-16] MEDS: Loratadine 10 MG TABLET PO SCH (09:39)
[2020-03-16] MEDS: Furosemide 40 MG TABLET PO SCH ×2 (09:39→17:17)
[2020-03-16] MEDS: Magnesium Oxide 400 MG TABLET PO SCH ×3 (09:39→23:36)
[2020-03-16] MEDS: Gabapentin 400 MG CAPSULE PO SCH ×3 (09:39→23:36)
[2020-03-16] MEDS: Cholecalciferol (D-3) 1,000 UNIT (25MCG) TABLET PO SCH (09:39)
[2020-03-16] MEDS: Piperacillin/Tazobactam 3.375 GM in 0.9 % Sodium Chloride Mini Bag 100 ML IVPB SCH ×3 (09:39→23:37)
[2020-03-16] MEDS: Aspirin 325 MG TABLET PO SCH (09:40)
[2020-03-16] MEDS ORDERED: 0.9 % Sodium Chloride 2,000 ML ONE (13:29)
[2020-03-16] MEDS ORDERED: Heparin 1,000 UNITS/500 mL 500 ML ONE ×2 (13:29→15:08)
[2020-03-16] MEDS ORDERED: *HR* Heparin 10,000 UNIT/10 ML VIAL ONE (13:29)
[2020-03-16] MEDS ORDERED: *HR* Midazolam HCl 2 MG/2 ML VIAL ONE (13:33)
[2020-03-16] MEDS ORDERED: *HR* FentaNYL (PF) 100 MCG/2 ML VIAL ONE (13:34)
[2020-03-16] MEDS ORDERED: *HR* Ticagrelor 90 MG TABLET ONE (15:19)
[2020-03-16] MEDS ORDERED: Ondansetron 4 MG/2 ML VIAL IVP PRN (15:25)
[2020-03-16] MEDS: Insulin DETEMIR 100 UNIT/ML X5UNITS SQ SCH (16:39)
[2020-03-16] MEDS ORDERED: *HR* Labetalol 20 MG/4 ML SYRINGE IVP PRN (18:35)
[2020-03-16] MEDS ORDERED: *HR* Atropine Sulfate 1 MG/10 ML SYRINGE ONE (20:06)
[2020-03-16] MEDS ORDERED: Insulin DETEMIR 100 UNIT/ML X5UNITS SQ SCH (21:00)
[2020-03-16] MEDS ORDERED: Budesonide/Formoterol 160/4.5 1 PUFF INH IH SCH (21:00)
[2020-03-16] MEDS ORDERED: Furosemide 20 MG TABLET PO SCH (21:00)
[2020-03-16] MEDS ORDERED: Vancomycin 1,500 MG/265 ML IV.SOLN IVPB SCH (22:00)
[2020-03-16] MEDS: Sennosides/Docusate Sodium TABLET PO SCH (23:36)
[2020-03-16] MEDS: rOPINIRole 1 MG TABLET PO SCH (23:36)
[2020-03-16] MEDS ORDERED: *HR* OxyCODONE Immed Rel 15 MG TABLET PO ONE (23:38)
[2020-03-16] MEDS: *HR* Ticagrelor 90 MG TABLET PO SCH (23:49)
[2020-03-17 02:10] LABS: Basophils % 0.3 %; Eosinophils # 0.5 K/mcL (0.0-0.6); Eosinophils % 5.1 %; Hematocrit 35.2 % (37.5-50.1); Hemoglobin 11.2 g/dL (12.9-16.9); Immature Granulocytes % 0.2 % (0-4); Lymphocytes # 1.2 K/mcL (0.6-4.6); Lymphocytes % 12.4 %; Mean Corpuscular HGB Conc 31.8 g/dL (31.6-35.5); Mean Corpuscular Hemoglobin 29.6 pg (28.0-33.3); Mean Corpuscular Volume 92.9 fL (83.0-100.0); Mean Platelet Volume 9.5 fL (9.4-12.4); Monocytes # 0.6 K/mcL (0.0-1.3); Monocytes % 6.8 %; Platelet Count 211 K/mcL (140-400); Red Blood Count 3.79 M/mcL (4.19-5.50); Red Cell Distribution Width 12.4 % (11.5-14.5); Segmented Neutrophils % 75.2 %; White Blood Count 9.3 K/mcL (4.3-11.1)
[2020-03-17 02:30] LABS: BUN/Creatinine Ratio 17 (6-26); Blood Urea Nitrogen 19 mg/dL (8-23); Calcium 8.9 mg/dL (8.6-10.3); Carbon Dioxide 26 mEq/L (23-29); Chloride 102 mEq/L (98-107); Glucose 250 mg/dL (70-105); Osmolality,Calculated 293 (280-300); Potassium 3.9 mEq/L (3.5-5.1); Sodium 136 mEq/L (136-145); eGFR For African Americans > 60 (> 60); eGFR For Non-African Americans > 60 (> 60)
[2020-03-17] MEDS: *HR* Heparin 5,000 UNIT/ML VIAL SQ SCH ×3 (04:31→22:21)
[2020-03-17] MEDS: Insulin LISPRO 300 UNITS/3 ML VIAL SQ SCH ×3 (06:07→16:47)
[2020-03-17] MEDS: Calcium Acetate 667 MG CAPSULE PO SCH ×3 (08:04→16:30)
[2020-03-17] MEDS: Gabapentin 400 MG CAPSULE PO SCH ×3 (08:05→20:23)
[2020-03-17] MEDS: Furosemide 40 MG TABLET PO SCH ×2 (08:06→16:47)
[2020-03-17] MEDS: *HR* Ticagrelor 90 MG TABLET PO SCH ×2 (08:06→20:22)
[2020-03-17] MEDS: Magnesium Oxide 400 MG TABLET PO SCH ×3 (08:06→20:23)
[2020-03-17] MEDS: Cholecalciferol (D-3) 1,000 UNIT (25MCG) TABLET PO SCH (08:06)
[2020-03-17] MEDS: Piperacillin/Tazobactam 3.375 GM in 0.9 % Sodium Chloride Mini Bag 100 ML IVPB SCH ×3 (08:06→23:31)
[2020-03-17] MEDS: Loratadine 10 MG TABLET PO SCH (08:06)
[2020-03-17] MEDS: Insulin DETEMIR 100 UNIT/ML X5UNITS SQ SCH (08:07)
[2020-03-17] MEDS ORDERED: lisinopriL 5 MG TABLET PO SCH (09:00)
[2020-03-17] MEDS ORDERED: Aspirin 81 MG TAB.CHEW PO SCH (09:00)
[2020-03-17] MEDS ORDERED: Vancomycin 1,250 MG/262.5 ML IV.SOLN IVPB SCH (10:00)
[2020-03-17] MEDS: Budesonide/Formoterol 80/4.5 1 PUFF INH IH SCH ×2 (11:05→19:50)
[2020-03-17 11:58] LABS: Adenovirus Not Detected (Not Detect); Bordetella Pertussis Not Detected (Not Detect); Chlamydophila pneumoniae Not Detected (Not Detect); Coronavirus 229E Not Detected (Not Detect); Coronavirus HKU1 Not Detected (Not Detect); Coronavirus NL63 Not Detected (Not Detect); Coronavirus OC43 Not Detected (Not Detect); Human Metapneumovirus Not Detected (Not Detect); Human Rhinovirus/Enterovirus Not Detected (Not Detect); Influenza A Subtype 2009 H1 Not Detected (Not Detect); Influenza B Not Detected (Not Detect); Mycoplasma pneumoniae Not Detected (Not Detect); Parainfluenza Virus 1 Not Detected (Not Detect); Parainfluenza Virus 2 Not Detected (Not Detect); Parainfluenza Virus 3 Not Detected (Not Detect); Parainfluenza Virus 4 Not Detected (Not Detect); Respiratory Syncytial Virus Not Detected (Not Detect); SARS-CoV-2 Not Detected (Not Detect)
[2020-03-17] MEDS ORDERED: Bupivacaine-MPF 0.25% 10 ML VIAL ONE (17:39)
[2020-03-17] MEDS ORDERED: *HR* Propofol 200 MG/20 ML VIAL IVP ONE (17:48)
[2020-03-17] MEDS ORDERED: Lidocaine -MPF 2% 2 ML VIAL ONE (17:54)
[2020-03-17] MEDS ORDERED: Albuterol 2.5 MG/3 ML NEBULIZER IH PRN (19:24)
[2020-03-17] MEDS ORDERED: Fluticasone Propionate Nasal 50 MCG/SPRAY BOTTLE NS PRN (19:24)
[2020-03-17] MEDS ORDERED: Ondansetron 4 MG/2 ML VIAL IVP PRN (19:24)
[2020-03-17] MEDS ORDERED: *HR* Labetalol 20 MG/4 ML SYRINGE IVP PRN (19:24)
[2020-03-17] MEDS ORDERED: Naloxone 0.4 MG/ML INJ IVP PRN (19:24)
[2020-03-17] MEDS ORDERED: Dextrose Gel 15 GM/37.5 ML TUBE PO PRN ×2 (19:24)
[2020-03-17] MEDS ORDERED: Gadolinium Contrast Agent (WT Based) IV PRN (19:24)
[2020-03-17] MEDS ORDERED: *HR* Dextrose 50 % in Water (Vial) 50 ML VIAL IVP PRN (19:24)
[2020-03-17] MEDS ORDERED: D5% in Water 1,000 ML IVC PRN (19:24)
[2020-03-17] MEDS: rOPINIRole 1 MG TABLET PO SCH (20:23)
[2020-03-17] MEDS: Sennosides/Docusate Sodium TABLET PO SCH (20:23)
[2020-03-17] MEDS ORDERED: Insulin DETEMIR 100 UNIT/ML X5UNITS SQ SCH (21:00)
[2020-03-18] MEDS: *HR* Heparin 5,000 UNIT/ML VIAL SQ SCH (04:17)
[2020-03-18 06:05] LABS: Basophils % 0.3 %; Eosinophils # 0.5 K/mcL (0.0-0.6); Eosinophils % 7.3 %; Hematocrit 33.9 % (37.5-50.1); Hemoglobin 10.5 g/dL (12.9-16.9); Immature Granulocytes % 0.6 % (0-4); Lymphocytes # 1.4 K/mcL (0.6-4.6); Lymphocytes % 19.6 %; Mean Corpuscular Hemoglobin 28.8 pg (28.0-33.3); Mean Corpuscular Volume 92.9 fL (83.0-100.0); Mean Platelet Volume 9.8 fL (9.4-12.4); Monocytes # 0.7 K/mcL (0.0-1.3); Monocytes % 9.5 %; Neutrophils # 4.4 K/mcL (1.6-8.9); Platelet Count 222 K/mcL (140-400); Red Blood Count 3.65 M/mcL (4.19-5.50); Red Cell Distribution Width 12.6 % (11.5-14.5); Segmented Neutrophils % 62.7 %; White Blood Count 7.1 K/mcL (4.3-11.1)
[2020-03-18 07:20] LABS: BUN/Creatinine Ratio 16 (6-26); Blood Urea Nitrogen 17 mg/dL (8-23); Calcium 8.9 mg/dL (8.6-10.3); Carbon Dioxide 25 mEq/L (23-29); Chloride 102 mEq/L (98-107); Glucose 239 mg/dL (70-105); Osmolality,Calculated 289 (280-300); Sodium 135 mEq/L (136-145); eGFR For African Americans > 60 (> 60); eGFR For Non-African Americans > 60 (> 60)
[2020-03-18] MEDS: Budesonide/Formoterol 80/4.5 1 PUFF INH IH SCH ×2 (07:42→20:14)
[2020-03-18] MEDS ORDERED: Perflutren Lipid Microsphere 1.3 ML in 0.9 % Sodium Chloride 8.7 ML IVP PRN (08:51)
[2020-03-18] MEDS ORDERED: Insulin DETEMIR 100 UNIT/ML X5UNITS SQ SCH ×2 (09:00→21:00)
[2020-03-18] MEDS ORDERED: Aspirin 81 MG TAB.CHEW PO SCH (09:00)
[2020-03-18] MEDS: Insulin LISPRO 300 UNITS/3 ML VIAL SQ SCH ×3 (09:48→16:40)
[2020-03-18] MEDS: Gabapentin 400 MG CAPSULE PO SCH ×3 (09:50→21:00)
[2020-03-18] MEDS: Furosemide 40 MG TABLET PO SCH ×2 (09:51→16:41)
[2020-03-18] MEDS: Calcium Acetate 667 MG CAPSULE PO SCH ×3 (09:51→16:41)
[2020-03-18] MEDS: lisinopriL 5 MG TABLET PO SCH (09:52)
[2020-03-18] MEDS: Cholecalciferol (D-3) 1,000 UNIT (25MCG) TABLET PO SCH (09:52)
[2020-03-18] MEDS: Magnesium Oxide 400 MG TABLET PO SCH ×3 (09:52→21:00)
[2020-03-18] MEDS: Loratadine 10 MG TABLET PO SCH (09:52)
[2020-03-18] MEDS: Piperacillin/Tazobactam 3.375 GM in 0.9 % Sodium Chloride Mini Bag 100 ML IVPB SCH ×2 (09:53→16:42)
[2020-03-18] MEDS: *HR* Ticagrelor 90 MG TABLET PO SCH ×2 (09:53→21:01)
[2020-03-18] MEDS: *HR* OxyCODONE/APAP 10/325 TABLET PO PRN ×2 (09:59→16:54)
[2020-03-18] MEDS: rOPINIRole 1 MG TABLET PO SCH (21:00)
[2020-03-18] MEDS: Apixaban 5 MG TABLET PO SCH (21:00)
[2020-03-18] MEDS: Sennosides/Docusate Sodium TABLET PO SCH (21:00)
[2020-03-18] MEDS ORDERED: Acetaminophen IV 1,000 MG/100 ML BAG IVPB ONE (21:21)
[2020-03-19] MEDS: *HR* OxyCODONE/APAP 10/325 TABLET PO PRN ×3 (00:35→18:11)
[2020-03-19] MEDS: Piperacillin/Tazobactam 3.375 GM in 0.9 % Sodium Chloride Mini Bag 100 ML IVPB SCH ×3 (00:36→18:06)
[2020-03-19 02:48] LABS: Basophils % 0.6 %; Eosinophils # 0.5 K/mcL (0.0-0.6); Eosinophils % 7.7 %; Hematocrit 35.6 % (37.5-50.1); Immature Granulocytes % 0.6 % (0-4); Lymphocytes # 1.8 K/mcL (0.6-4.6); Lymphocytes % 26.2 %; Mean Corpuscular HGB Conc 30.9 g/dL (31.6-35.5); Mean Corpuscular Hemoglobin 28.8 pg (28.0-33.3); Mean Corpuscular Volume 93.2 fL (83.0-100.0); Mean Platelet Volume 9.7 fL (9.4-12.4); Monocytes # 0.6 K/mcL (0.0-1.3); Monocytes % 8.4 %; Platelet Count 244 K/mcL (140-400); Red Blood Count 3.82 M/mcL (4.19-5.50); Red Cell Distribution Width 12.7 % (11.5-14.5); Segmented Neutrophils % 56.5 %
[2020-03-19 03:12] LABS: BUN/Creatinine Ratio 15 (6-26); Blood Urea Nitrogen 18 mg/dL (8-23); Calcium 9.4 mg/dL (8.6-10.3); Carbon Dioxide 28 mEq/L (23-29); Chloride 99 mEq/L (98-107); Glucose 250 mg/dL (70-105); Osmolality,Calculated 288 (280-300); Potassium 4.1 mEq/L (3.5-5.1); Sodium 134 mEq/L (136-145); eGFR For African Americans > 60 (> 60); eGFR For Non-African Americans > 60 (> 60)
[2020-03-19] MEDS: Budesonide/Formoterol 80/4.5 1 PUFF INH IH SCH ×2 (08:13→20:30)
[2020-03-19] MEDS: Ipratropium/Albuterol Neb 3 ML IH PRN ×2 (08:14→23:55)
[2020-03-19] MEDS: Furosemide 40 MG TABLET PO SCH ×2 (08:33→18:06)
[2020-03-19] MEDS: Magnesium Oxide 400 MG TABLET PO SCH ×3 (08:33→21:33)
[2020-03-19] MEDS: Gabapentin 400 MG CAPSULE PO SCH ×3 (08:33→21:30)
[2020-03-19] MEDS: *HR* Ticagrelor 90 MG TABLET PO SCH ×2 (08:34→21:29)
[2020-03-19] MEDS: Loratadine 10 MG TABLET PO SCH (08:34)
[2020-03-19] MEDS: Apixaban 5 MG TABLET PO SCH ×2 (08:34→21:29)
[2020-03-19] MEDS: Cholecalciferol (D-3) 1,000 UNIT (25MCG) TABLET PO SCH (08:34)
[2020-03-19] MEDS: Calcium Acetate 667 MG CAPSULE PO SCH ×3 (08:35→18:05)
[2020-03-19] MEDS: Insulin LISPRO 300 UNITS/3 ML VIAL SQ SCH ×2 (08:37→11:50)
[2020-03-19] MEDS ORDERED: Insulin DETEMIR 100 UNIT/ML X5UNITS SQ SCH ×2 (09:00→21:00)
[2020-03-19] MEDS: lisinopriL 5 MG TABLET PO SCH (11:48)
[2020-03-19] MEDS ORDERED: Insulin LISPRO 300 UNITS/3 ML VIAL SQ SCH (15:56)
[2020-03-19] MEDS: Sennosides/Docusate Sodium TABLET PO SCH (21:32)
[2020-03-19] MEDS: rOPINIRole 1 MG TABLET PO SCH (21:32)
[2020-03-19] MEDS: *HR* OxyCODONE/APAP 5/325 TABLET PO PRN (22:04)
[2020-03-20] MEDS: *HR* OxyCODONE/APAP 10/325 TABLET PO PRN (01:08)
[2020-03-20] MEDS: Piperacillin/Tazobactam 3.375 GM in 0.9 % Sodium Chloride Mini Bag 100 ML IVPB SCH ×2 (01:09→09:34)
[2020-03-20] MEDS: *HR* OxyCODONE/APAP 5/325 TABLET PO PRN ×2 (05:17→10:00)
[2020-03-20] MEDS: Budesonide/Formoterol 80/4.5 1 PUFF INH IH SCH (07:58)
[2020-03-20] MEDS ORDERED: Insulin DETEMIR 100 UNIT/ML X5UNITS SQ SCH ×2 (09:00→21:00)
[2020-03-20] MEDS: Gabapentin 400 MG CAPSULE PO SCH ×2 (09:36→16:48)
[2020-03-20] MEDS: *HR* Ticagrelor 90 MG TABLET PO SCH (09:37)
[2020-03-20] MEDS: Loratadine 10 MG TABLET PO SCH (09:37)
[2020-03-20] MEDS: Apixaban 5 MG TABLET PO SCH (09:37)
[2020-03-20] MEDS: lisinopriL 5 MG TABLET PO SCH (09:37)
[2020-03-20] MEDS: Calcium Acetate 667 MG CAPSULE PO SCH ×3 (09:37→16:48)
[2020-03-20] MEDS: Furosemide 40 MG TABLET PO SCH ×2 (09:37→16:48)
[2020-03-20] MEDS: Cholecalciferol (D-3) 1,000 UNIT (25MCG) TABLET PO SCH (09:37)
[2020-03-20 10:37] LABS: Basophils % 0.4 %; Eosinophils # 0.6 K/mcL (0.0-0.6); Eosinophils % 7.6 %; Hematocrit 34.9 % (37.5-50.1); Hemoglobin 10.8 g/dL (12.9-16.9); Immature Granulocytes % 0.6 % (0-4); Lymphocytes # 1.8 K/mcL (0.6-4.6); Lymphocytes % 22.7 %; Mean Corpuscular HGB Conc 30.9 g/dL (31.6-35.5); Mean Corpuscular Hemoglobin 28.8 pg (28.0-33.3); Mean Corpuscular Volume 93.1 fL (83.0-100.0); Mean Platelet Volume 9.7 fL (9.4-12.4); Monocytes # 0.7 K/mcL (0.0-1.3); Monocytes % 8.7 %; Neutrophils # 4.6 K/mcL (1.6-8.9); Platelet Count 250 K/mcL (140-400); Red Blood Count 3.75 M/mcL (4.19-5.50); Red Cell Distribution Width 12.8 % (11.5-14.5); White Blood Count 7.7 K/mcL (4.3-11.1)
[2020-03-20 10:56] LABS: BUN/Creatinine Ratio 24 (6-26); Blood Urea Nitrogen 28 mg/dL (8-23); Calcium 8.9 mg/dL (8.6-10.3); Carbon Dioxide 25 mEq/L (23-29); Chloride 99 mEq/L (98-107); Glucose 336 mg/dL (70-105); Osmolality,Calculated 293 (280-300); Potassium 4.1 mEq/L (3.5-5.1); Sodium 132 mEq/L (136-145); eGFR For African Americans > 60 (> 60); eGFR For Non-African Americans > 60 (> 60)
[2020-03-20] MEDS: Insulin LISPRO 300 UNITS/3 ML VIAL SQ SCH ×2 (12:15→16:49)
[2020-03-20] MEDS: Magnesium Oxide 400 MG TABLET PO SCH ×2 (12:15→16:47)
[2020-03-20] MEDS ORDERED: FLU Vac QV HD 20-21 (65YR+)/PF 0.7 ML SYRINGE IM ONE (14:47)
[2020-03-20] MEDS ORDERED: FLU Vac QV 20-21 (6Month+)/PF 0.5 ML SYRINGE IM ONE (15:30)
[2020-03-20 15:53] VITALS: BP 149/69
== END 2020-03-20 17:31 | disposition home health service (06) | DRG 617 ==
LOC: 3NENU 17:36 → EMEROOARM 17:36 → SUATTDRO 19:50 → 3NENU 20:30 → SUATTDRO 03-15 17:48 → 2NNU 03-16 13:48 → 3NENU 03-16 14:59 → 2NNU 03-16 16:27 → 3NENU 03-17 19:06
PROVIDERS: ADMIT Internal Medicine; ATTEND Internal Medicine

== ENCOUNTER 2020-10-13 15:13 | Inpatient (IN) ==
[2020-10-13] MEDS ORDERED: Furosemide 40 MG/4 ML VIAL IVP ONE (15:19)
[2020-10-13] MEDS ORDERED: Aspirin 81 MG TAB.CHEW PO STA (16:04)
[2020-10-13 16:30] LABS: Basophils % 0.3 %; Eosinophils # 0.2 K/mcL (0.0-0.6); Eosinophils % 2.2 %; Hematocrit 38.4 % (37.5-50.1); Hemoglobin 11.9 g/dL (12.9-16.9); Immature Granulocytes % 0.3 % (0-4); Lymphocytes # 0.9 K/mcL (0.6-4.6); Lymphocytes % 11.4 %; Mean Corpuscular Hemoglobin 29.2 pg (28.0-33.3); Mean Corpuscular Volume 94.1 fL (83.0-100.0); Mean Platelet Volume 10.1 fL (9.4-12.4); Monocytes # 0.8 K/mcL (0.0-1.3); Monocytes % 10.1 %; Neutrophils # 5.7 K/mcL (1.6-8.9); Platelet Count 145 K/mcL (140-400); Red Blood Count 4.08 M/mcL (4.19-5.50); Red Cell Distribution Width 13.2 % (11.5-14.5); Segmented Neutrophils % 75.7 %; White Blood Count 7.6 K/mcL (4.3-11.1)
[2020-10-13 16:37] LABS: INR 1.8; Prothrombin Time 20.7 Seconds (9.4-12.1)
[2020-10-13 16:56] LABS: BUN/Creatinine Ratio 20 (6-26); Blood Urea Nitrogen 21 mg/dL (8-23); Calcium 8.8 mg/dL (8.6-10.3); Carbon Dioxide 28 mEq/L (23-29); Chloride 101 mEq/L (98-107); Glucose 147 mg/dL (70-105); Osmolality,Calculated 292 (280-300); Potassium 3.8 mEq/L (3.5-5.1); Sodium 138 mEq/L (136-145); Troponin I 0.04 ng/mL (< 0.04); eGFR For African Americans > 60 (> 60); eGFR For Non-African Americans > 60 (> 60)
[2020-10-13] MEDS ORDERED: Ipratropium/Albuterol Neb 3 ML IH ONE (17:03)
[2020-10-13] MEDS ORDERED: Dextrose Gel 15 GM/37.5 ML TUBE PO PRN ×2 (17:19)
[2020-10-13] MEDS ORDERED: D5% in Water 1,000 ML IVC PRN (17:19)
[2020-10-13] MEDS ORDERED: *HR* Dextrose 50 % in Water (Vial) 50 ML VIAL IVP PRN (17:19)
[2020-10-13] MEDS ORDERED: Naloxone 0.4 MG/ML INJ IVP PRN (17:19)
[2020-10-13] MEDS ORDERED: *HR* OxyCODONE Immed Rel 5 MG TABLET PO PRN (17:19)
[2020-10-13] MEDS ORDERED: Ondansetron 4 MG/2 ML VIAL IVP PRN (17:19)
[2020-10-13] MEDS ORDERED: *HR* HYDROcodone/Acet 5/325 mg TABLET PO PRN (17:19)
[2020-10-13] MEDS ORDERED: Ipratropium/Albuterol Neb 3 ML IH PRN (17:25)
[2020-10-13] MEDS ORDERED: Perflutren Lipid Microsphere 1.3 ML in 0.9 % Sodium Chloride 8.7 ML IVP PRN (17:26)
[2020-10-13] MEDS: Insulin LISPRO 300 UNITS/3 ML VIAL SUBQ SCH (20:28)
[2020-10-13] MEDS ORDERED: Insulin DETEMIR 100 UNIT/ML X5UNITS SUBQ SCH (21:00)
[2020-10-13] MEDS: Furosemide 40 MG/4 ML VIAL IVP SCH (21:42)
[2020-10-13] MEDS: predniSONE 20 MG TABLET PO SCH (21:42)
[2020-10-13] MEDS: *HR* OxyCODONE Immed Rel 5 MG TABLET PO PRN (21:43)
[2020-10-13] MEDS: Apixaban 5 MG TABLET PO SCH (21:43)
[2020-10-13] MEDS: *HR* Ticagrelor 90 MG TABLET PO SCH (21:43)
[2020-10-14] MEDS: Acetaminophen 325 MG TABLET PO PRN ×3 (03:47→20:13)
[2020-10-14 04:48] LABS: Basophils % 0.1 %; Eosinophils % 0.1 %; Hematocrit 39.7 % (37.5-50.1); Hemoglobin 12.3 g/dL (12.9-16.9); Immature Granulocytes % 0.5 % (0-4); Lymphocytes # 0.6 K/mcL (0.6-4.6); Lymphocytes % 7.6 %; Mean Corpuscular Hemoglobin 29.1 pg (28.0-33.3); Mean Corpuscular Volume 94.1 fL (83.0-100.0); Mean Platelet Volume 10.7 fL (9.4-12.4); Monocytes # 0.2 K/mcL (0.0-1.3); Monocytes % 2.8 %; Platelet Count 147 K/mcL (140-400); Red Blood Count 4.22 M/mcL (4.19-5.50); Red Cell Distribution Width 13.2 % (11.5-14.5); Segmented Neutrophils % 88.9 %; White Blood Count 7.9 K/mcL (4.3-11.1)
[2020-10-14 05:11] LABS: BUN/Creatinine Ratio 21 (6-26); Blood Urea Nitrogen 23 mg/dL (8-23); Calcium 9.2 mg/dL (8.6-10.3); Carbon Dioxide 26 mEq/L (23-29); Chloride 98 mEq/L (98-107); Glucose 383 mg/dL (70-105); Magnesium 1.9 mg/dL (1.6-2.6); Osmolality,Calculated 295 (280-300); Phosphorous 2.6 mg/dL (2.7-4.5); Potassium 4.5 mEq/L (3.5-5.1); Sodium 133 mEq/L (136-145); eGFR For African Americans > 60 (> 60); eGFR For Non-African Americans > 60 (> 60)
[2020-10-14 05:12] LABS: Troponin I 0.05 ng/mL (< 0.04)
[2020-10-14] MEDS: *HR* OxyCODONE Immed Rel 5 MG TABLET PO PRN ×3 (05:54→23:06)
[2020-10-14] MEDS: Apixaban 5 MG TABLET PO SCH ×2 (08:22→20:14)
[2020-10-14] MEDS: Furosemide 40 MG/4 ML VIAL IVP SCH ×3 (08:22→20:14)
[2020-10-14] MEDS: *HR* Ticagrelor 90 MG TABLET PO SCH ×2 (08:22→20:11)
[2020-10-14] MEDS: Insulin LISPRO 300 UNITS/3 ML VIAL SUBQ SCH ×3 (08:23→17:37)
[2020-10-14] MEDS: predniSONE 20 MG TABLET PO SCH (08:23)
[2020-10-14] MEDS ORDERED: lisinopriL 5 MG TABLET PO SCH (09:00)
[2020-10-14] MEDS ORDERED: Fluticasone Propionate Nasal 50 MCG/SPRAY BOTTLE NS PRN (12:11)
[2020-10-14] MEDS ORDERED: lisinopriL 5 MG TABLET PO ONE (13:00)
[2020-10-14] MEDS: Gabapentin 400 MG CAPSULE PO SCH ×2 (14:34→20:11)
[2020-10-14] MEDS: Magnesium Oxide 400 MG TABLET PO SCH ×2 (14:35→20:11)
[2020-10-14] MEDS: rOPINIRole 1 MG TABLET PO SCH (20:14)
[2020-10-14] MEDS: *HR* Acetylcysteine 20% 600 MG/3 ML ORAL SYRINGE PO SCH (20:20)
[2020-10-14] MEDS: Budesonide/Formoterol 160/4.5 1 PUFF INH IH SCH (20:28)
[2020-10-14] MEDS ORDERED: Insulin DETEMIR 100 UNIT/ML X5UNITS SUBQ SCH (21:00)
[2020-10-15] MEDS: *HR* OxyCODONE Immed Rel 5 MG TABLET PO PRN ×3 (06:48→23:05)
[2020-10-15 06:53] LABS: Basophils % 0.2 %; Eosinophils # 0.2 K/mcL (0.0-0.6); Eosinophils % 2.5 %; Hematocrit 37.8 % (37.5-50.1); Hemoglobin 11.9 g/dL (12.9-16.9); Immature Granulocytes % 0.3 % (0-4); Lymphocytes # 1.9 K/mcL (0.6-4.6); Lymphocytes % 20.4 %; Mean Corpuscular HGB Conc 31.5 g/dL (31.6-35.5); Mean Corpuscular Hemoglobin 29.8 pg (28.0-33.3); Mean Corpuscular Volume 94.7 fL (83.0-100.0); Mean Platelet Volume 10.8 fL (9.4-12.4); Monocytes # 0.9 K/mcL (0.0-1.3); Monocytes % 9.2 %; Neutrophils # 6.3 K/mcL (1.6-8.9); Platelet Count 173 K/mcL (140-400); Red Blood Count 3.99 M/mcL (4.19-5.50); Red Cell Distribution Width 13.3 % (11.5-14.5); Segmented Neutrophils % 67.4 %; White Blood Count 9.4 K/mcL (4.3-11.1)
[2020-10-15] MEDS: Budesonide/Formoterol 160/4.5 1 PUFF INH IH SCH ×2 (07:21→20:13)
[2020-10-15] MEDS: Cholecalciferol (D-3) 1,000 UNIT (25MCG) TABLET PO SCH (07:52)
[2020-10-15] MEDS: lisinopriL 10 MG TABLET PO SCH (07:52)
[2020-10-15] MEDS: *HR* Ticagrelor 90 MG TABLET PO SCH (07:52)
[2020-10-15] MEDS: Apixaban 5 MG TABLET PO SCH ×2 (07:53→20:41)
[2020-10-15] MEDS: predniSONE 20 MG TABLET PO SCH (07:53)
[2020-10-15] MEDS: Magnesium Oxide 400 MG TABLET PO SCH ×3 (07:53→20:41)
[2020-10-15] MEDS: Gabapentin 400 MG CAPSULE PO SCH ×3 (07:53→20:41)
[2020-10-15] MEDS: Furosemide 40 MG/4 ML VIAL IVP SCH ×2 (07:53→20:40)
[2020-10-15] MEDS: Loratadine 10 MG TABLET PO SCH (07:53)
[2020-10-15] MEDS: Insulin LISPRO 300 UNITS/3 ML VIAL SUBQ SCH ×3 (07:54→16:55)
[2020-10-15] MEDS ORDERED: Aspirin Enteric Coated 81 MG Tablet PO SCH (09:00)
[2020-10-15] MEDS: *HR* Acetylcysteine 20% 600 MG/3 ML ORAL SYRINGE PO SCH ×2 (11:25→20:42)
[2020-10-15 12:37] LABS: BUN/Creatinine Ratio 28 (6-26); Blood Urea Nitrogen 36 mg/dL (8-23); Blood Urea Nitrogen 37 mg/dL (8-23); Calcium 9.6 mg/dL (8.6-10.3); Calcium 9.7 mg/dL (8.6-10.3); Carbon Dioxide 28 mEq/L (23-29); Chloride 96 mEq/L (98-107); Chloride 97 mEq/L (98-107); Glucose 351 mg/dL (70-105); Glucose 352 mg/dL (70-105); Osmolality,Calculated 296 (280-300); Osmolality,Calculated 299 (280-300); Potassium 3.9 mEq/L (3.5-5.1); Sodium 132 mEq/L (136-145); Sodium 133 mEq/L (136-145); eGFR For African Americans > 60 (> 60); eGFR For Non-African Americans 55 (> 60); eGFR For Non-African Americans 56 (> 60)
[2020-10-15] MEDS: rOPINIRole 1 MG TABLET PO SCH (20:41)
[2020-10-15] MEDS ORDERED: Insulin DETEMIR 100 UNIT/ML X5UNITS SUBQ SCH (21:00)
[2020-10-15] MEDS: Acetaminophen 325 MG TABLET PO PRN (21:04)
[2020-10-16 02:34] LABS: Basophils % 0.2 %; Eosinophils # 0.2 K/mcL (0.0-0.6); Eosinophils % 1.9 %; Hematocrit 38.3 % (37.5-50.1); Hemoglobin 12.2 g/dL (12.9-16.9); Immature Granulocytes % 0.3 % (0-4); Lymphocytes # 1.6 K/mcL (0.6-4.6); Mean Corpuscular HGB Conc 31.9 g/dL (31.6-35.5); Mean Corpuscular Hemoglobin 29.3 pg (28.0-33.3); Mean Corpuscular Volume 91.8 fL (83.0-100.0); Mean Platelet Volume 10.7 fL (9.4-12.4); Monocytes # 0.7 K/mcL (0.0-1.3); Monocytes % 7.3 %; Neutrophils # 6.4 K/mcL (1.6-8.9); Platelet Count 161 K/mcL (140-400); Red Blood Count 4.17 M/mcL (4.19-5.50); Red Cell Distribution Width 13.1 % (11.5-14.5); Segmented Neutrophils % 72.3 %; White Blood Count 8.9 K/mcL (4.3-11.1)
[2020-10-16 02:53] LABS: Albumin 3.8 g/dL (3.5-5.7); BUN/Creatinine Ratio 30 (6-26); Blood Urea Nitrogen 38 mg/dL (8-23); Calcium 9.1 mg/dL (8.6-10.3); Carbon Dioxide 27 mEq/L (23-29); Chloride 97 mEq/L (98-107); Glucose 394 mg/dL (70-105); Osmolality,Calculated 299 (280-300); Potassium 4.1 mEq/L (3.5-5.1); Sodium 132 mEq/L (136-145); eGFR For African Americans > 60 (> 60); eGFR For Non-African Americans 59 (> 60)
[2020-10-16] MEDS: Acetaminophen 325 MG TABLET PO PRN ×2 (06:26→15:33)
[2020-10-16] MEDS: Budesonide/Formoterol 160/4.5 1 PUFF INH IH SCH ×2 (08:13→20:29)
[2020-10-16] MEDS: Furosemide 40 MG/4 ML VIAL IVP SCH ×2 (08:58→21:05)
[2020-10-16] MEDS: Magnesium Oxide 400 MG TABLET PO SCH ×3 (08:59→21:06)
[2020-10-16] MEDS: Gabapentin 400 MG CAPSULE PO SCH ×3 (08:59→21:06)
[2020-10-16] MEDS: Cholecalciferol (D-3) 1,000 UNIT (25MCG) TABLET PO SCH (08:59)
[2020-10-16] MEDS: Loratadine 10 MG TABLET PO SCH (08:59)
[2020-10-16] MEDS: lisinopriL 10 MG TABLET PO SCH (08:59)
[2020-10-16] MEDS: *HR* Acetylcysteine 20% 600 MG/3 ML ORAL SYRINGE PO SCH ×2 (08:59→21:05)
[2020-10-16] MEDS: *HR* OxyCODONE Immed Rel 5 MG TABLET PO PRN ×2 (09:00→17:29)
[2020-10-16] MEDS: Apixaban 5 MG TABLET PO SCH ×2 (09:00→21:07)
[2020-10-16] MEDS: predniSONE 20 MG TABLET PO SCH (09:00)
[2020-10-16] MEDS ORDERED: Aspirin 81 MG TAB.CHEW PO SCH (09:00)
[2020-10-16] MEDS: Insulin LISPRO 300 UNITS/3 ML VIAL SUBQ SCH ×3 (09:01→17:29)
[2020-10-16] MEDS: Insulin DETEMIR 100 UNIT/ML X5UNITS SUBQ SCH ×2 (12:43→21:05)
[2020-10-16] MEDS: rOPINIRole 1 MG TABLET PO SCH (21:06)
[2020-10-17] MEDS: *HR* OxyCODONE Immed Rel 5 MG TABLET PO PRN ×3 (03:19→23:03)
[2020-10-17] MEDS: lisinopriL 10 MG TABLET PO SCH (06:16)
[2020-10-17 07:29] LABS: Basophils % 0.2 %; Eosinophils # 0.1 K/mcL (0.0-0.6); Eosinophils % 1.4 %; Hematocrit 38.5 % (37.5-50.1); Hemoglobin 12.1 g/dL (12.9-16.9); Immature Granulocytes % 0.2 % (0-4); Lymphocytes # 1.8 K/mcL (0.6-4.6); Lymphocytes % 19.5 %; Mean Corpuscular HGB Conc 31.4 g/dL (31.6-35.5); Mean Corpuscular Hemoglobin 29.4 pg (28.0-33.3); Mean Corpuscular Volume 93.4 fL (83.0-100.0); Mean Platelet Volume 10.7 fL (9.4-12.4); Monocytes # 0.8 K/mcL (0.0-1.3); Monocytes % 8.1 %; Neutrophils # 6.5 K/mcL (1.6-8.9); Platelet Count 152 K/mcL (140-400); Red Blood Count 4.12 M/mcL (4.19-5.50); Segmented Neutrophils % 70.6 %; White Blood Count 9.2 K/mcL (4.3-11.1)
[2020-10-17] MEDS: Apixaban 5 MG TABLET PO SCH ×2 (07:47→20:23)
[2020-10-17] MEDS: Gabapentin 400 MG CAPSULE PO SCH ×3 (07:48→20:23)
[2020-10-17] MEDS: *HR* Ticagrelor 90 MG TABLET PO SCH ×2 (07:48→20:20)
[2020-10-17] MEDS: Loratadine 10 MG TABLET PO SCH (07:48)
[2020-10-17] MEDS: Magnesium Oxide 400 MG TABLET PO SCH ×3 (07:48→20:23)
[2020-10-17] MEDS: Insulin LISPRO 300 UNITS/3 ML VIAL SUBQ SCH ×3 (07:49→16:57)
[2020-10-17] MEDS: predniSONE 20 MG TABLET PO SCH (07:49)
[2020-10-17] MEDS: Cholecalciferol (D-3) 1,000 UNIT (25MCG) TABLET PO SCH (07:49)
[2020-10-17] MEDS: *HR* Acetylcysteine 20% 600 MG/3 ML ORAL SYRINGE PO SCH ×2 (07:49→20:24)
[2020-10-17] MEDS: Furosemide 40 MG/4 ML VIAL IVP SCH ×2 (07:49→20:23)
[2020-10-17 07:52] LABS: BUN/Creatinine Ratio 40 (6-26); Blood Urea Nitrogen 43 mg/dL (8-23); Calcium 9.5 mg/dL (8.6-10.3); Carbon Dioxide 28 mEq/L (23-29); Chloride 97 mEq/L (98-107); Glucose 353 mg/dL (70-105); Osmolality,Calculated 299 (280-300); Sodium 132 mEq/L (136-145); eGFR For African Americans > 60 (> 60); eGFR For Non-African Americans > 60 (> 60)
[2020-10-17] MEDS: Insulin DETEMIR 100 UNIT/ML X5UNITS SUBQ SCH ×2 (07:59→20:27)
[2020-10-17] MEDS: Budesonide/Formoterol 160/4.5 1 PUFF INH IH SCH ×2 (10:34→22:37)
[2020-10-17] MEDS: Ipratropium/Albuterol Neb 3 ML IH SCH ×2 (15:24→22:38)
[2020-10-17] MEDS: rOPINIRole 1 MG TABLET PO SCH (20:22)
[2020-10-17] MEDS: Acetaminophen 325 MG TABLET PO PRN (20:27)
[2020-10-18 01:28] LABS: Basophils % 0.1 %; Eosinophils # 0.1 K/mcL (0.0-0.6); Eosinophils % 1.1 %; Hematocrit 38.5 % (37.5-50.1); Hemoglobin 12.1 g/dL (12.9-16.9); Immature Granulocytes % 0.6 % (0-4); Lymphocytes # 1.4 K/mcL (0.6-4.6); Lymphocytes % 14.9 %; Mean Corpuscular HGB Conc 31.4 g/dL (31.6-35.5); Mean Corpuscular Hemoglobin 29.2 pg (28.0-33.3); Mean Platelet Volume 10.8 fL (9.4-12.4); Monocytes # 0.9 K/mcL (0.0-1.3); Monocytes % 9.4 %; Neutrophils # 6.9 K/mcL (1.6-8.9); Platelet Count 154 K/mcL (140-400); Red Blood Count 4.14 M/mcL (4.19-5.50); Red Cell Distribution Width 12.8 % (11.5-14.5); Segmented Neutrophils % 73.9 %; White Blood Count 9.3 K/mcL (4.3-11.1)
[2020-10-18 01:47] LABS: BUN/Creatinine Ratio 33 (6-26); Blood Urea Nitrogen 44 mg/dL (8-23); Calcium 9.3 mg/dL (8.6-10.3); Carbon Dioxide 27 mEq/L (23-29); Chloride 95 mEq/L (98-107); Glucose 445 mg/dL (70-105); Osmolality,Calculated 302 (280-300); Potassium 4.2 mEq/L (3.5-5.1); Sodium 131 mEq/L (136-145); eGFR For African Americans > 60 (> 60); eGFR For Non-African Americans 54 (> 60)
[2020-10-18] MEDS: Ipratropium/Albuterol Neb 3 ML IH SCH ×2 (04:26→10:16)
[2020-10-18] MEDS: Acetaminophen 325 MG TABLET PO PRN (05:20)
[2020-10-18 07:03] VITALS: BP 165/77
[2020-10-18] MEDS: Cholecalciferol (D-3) 1,000 UNIT (25MCG) TABLET PO SCH (08:30)
[2020-10-18] MEDS: Gabapentin 400 MG CAPSULE PO SCH (08:31)
[2020-10-18] MEDS: lisinopriL 10 MG TABLET PO SCH (08:32)
[2020-10-18] MEDS: *HR* Ticagrelor 90 MG TABLET PO SCH (08:32)
[2020-10-18] MEDS: Loratadine 10 MG TABLET PO SCH (08:32)
[2020-10-18] MEDS: Apixaban 5 MG TABLET PO SCH (08:32)
[2020-10-18] MEDS: Magnesium Oxide 400 MG TABLET PO SCH (08:33)
[2020-10-18] MEDS: predniSONE 20 MG TABLET PO SCH (08:33)
[2020-10-18] MEDS: Furosemide 40 MG/4 ML VIAL IVP SCH (08:34)
[2020-10-18] MEDS: Insulin DETEMIR 100 UNIT/ML X5UNITS SUBQ SCH (08:35)
[2020-10-18] MEDS: *HR* Acetylcysteine 20% 600 MG/3 ML ORAL SYRINGE PO SCH (08:35)
[2020-10-18] MEDS: Insulin LISPRO 300 UNITS/3 ML VIAL SUBQ SCH (08:36)
[2020-10-18] MEDS: *HR* OxyCODONE Immed Rel 5 MG TABLET PO PRN (08:47)
[2020-10-18] MEDS: Budesonide/Formoterol 160/4.5 1 PUFF INH IH SCH (10:16)
== END 2020-10-18 11:34 | disposition home or self-care (01) | DRG 280 ==
LOC: 2NENU 15:13 → EMEROOARM 15:13 → SUATTDRO 17:12 → 2NENU 19:36
PROVIDERS: ADMIT Internal Medicine; ATTEND Internal Medicine

== ENCOUNTER 2022-04-05 16:28 | Inpatient (IN) ==
[2022-04-05 21:30] LABS: Basophils % 0.3 %; Eosinophils # 0.3 K/mcL (0.0-0.6); Eosinophils % 2.9 %; Hematocrit 37.2 % (37.5-50.1); Hemoglobin 11.7 g/dL (12.9-16.9); Immature Granulocytes % 0.9 % (0-4); Lymphocytes # 2.3 K/mcL (0.6-4.6); Lymphocytes % 26.1 %; Mean Corpuscular HGB Conc 31.5 g/dL (31.6-35.5); Mean Corpuscular Hemoglobin 30.4 pg (28.0-33.3); Mean Corpuscular Volume 96.6 fL (83.0-100.0); Mean Platelet Volume 9.4 fL (9.4-12.4); Monocytes # 0.9 K/mcL (0.0-1.3); Neutrophils # 5.3 K/mcL (1.6-8.9); Platelet Count 242 K/mcL (140-400); Red Blood Count 3.85 M/mcL (4.19-5.50); Red Cell Distribution Width 13.3 % (11.5-14.5); Segmented Neutrophils % 59.8 %; White Blood Count 8.9 K/mcL (4.3-11.1)
[2022-04-05 21:38] LABS: INR 1.3; Prothrombin Time 14.2 Seconds (9.4-12.1)
[2022-04-05 21:41] LABS: Activated Partial Thrombo Time 40.2 Seconds (26.0-36.0)
[2022-04-05 21:50] LABS: Albumin 3.8 g/dL (3.5-5.7); Albumin/Globulin Ratio 1.2 (1.1-2.2); Bilirubin,Total 0.3 mg/dL (0.3-1.0); Calcium 9.3 mg/dL (8.6-10.3); Globulin 3.3 g/dL (2.4-3.5); Magnesium 2.4 mg/dL (1.6-2.6); Potassium 3.9 mEq/L (3.5-5.1); Total Protein 7.1 g/dL (6.4-8.9)
[2022-04-05] MEDS ORDERED: Cefepime HCl 2,000 MG in 0.9 % Sodium Chloride 10 ML IVP ONE (22:06)
[2022-04-05] MEDS ORDERED: Vancomycin 1,750 MG/517.5 ML IV.SOLN IVPB ONE (22:06)
[2022-04-05] MEDS ORDERED: Morphine Sulfate 2 MG/ML SYRINGE IVP PRN (22:07)
[2022-04-05] MEDS ORDERED: Gadolinium Contrast Agent (WT Based) IV PRN (22:58)
[2022-04-05] MEDS ORDERED: Insulin Human Regular 10 UNIT in 0.9 % Sodium Chloride 10 ML IV ONE (23:19)
[2022-04-06] MEDS ORDERED: Naloxone 0.4 MG/ML INJ IVP PRN (00:09)
[2022-04-06] MEDS ORDERED: Melatonin 3 MG TABLET PO PRN (00:09)
[2022-04-06] MEDS ORDERED: Ondansetron ODT 4 MG TAB.RAPDIS SL PRN (00:09)
[2022-04-06] MEDS ORDERED: *HR* HYDROcodone/Acet 5/325 mg TABLET PO PRN (00:48)
[2022-04-06] MEDS ORDERED: *HR* HYDROcodone/Acet 10/325 mg TABLET PO PRN (00:48)
[2022-04-06] MEDS ORDERED: D5% in Water 1,000 ML IVC PRN (01:19)
[2022-04-06] MEDS ORDERED: Dextrose Gel 15 GM/37.5 ML TUBE PO PRN ×2 (01:19)
[2022-04-06] MEDS ORDERED: *HR* Dextrose 50 % in Water (Syg) 50 ML SYRINGE IVP PRN (01:19)
[2022-04-06] MEDS ORDERED: *HR* Heparin 5,000 UNIT/ML VIAL IVP PRN ×2 (01:37)
[2022-04-06] MEDS ORDERED: *HR* Heparin 5,000 UNIT/ML VIAL IVP ONE (01:37)
[2022-04-06] MEDS ORDERED: Heparin 25,000UNIT/250ML 1/2NS 25,000 UNIT/250 ML IV.SOLN IVC SCH (01:45)
[2022-04-06] MEDS ORDERED: Ipratropium Neb 0.5 MG NEBULIZER IH PRN (02:05)
[2022-04-06] MEDS ORDERED: Gadolinium Contrast Agent (WT Based) IV PRN (02:35)
[2022-04-06] MEDS: *HR* OxyCODONE Immed Rel 5 MG TABLET PO PRN ×4 (03:22→23:45)
[2022-04-06] MEDS: rOPINIRole 1 MG TABLET PO SCH ×2 (03:22→21:32)
[2022-04-06] MEDS: Gabapentin 400 MG CAPSULE PO SCH ×4 (03:22→21:32)
[2022-04-06 05:06] LABS: Basophils % 0.5 %; Eosinophils # 0.3 K/mcL (0.0-0.6); Eosinophils % 3.2 %; Hemoglobin 10.9 g/dL (12.9-16.9); Immature Granulocytes % 0.6 % (0-4); Lymphocytes # 2.5 K/mcL (0.6-4.6); Lymphocytes % 28.7 %; Mean Corpuscular HGB Conc 32.1 g/dL (31.6-35.5); Mean Corpuscular Hemoglobin 30.4 pg (28.0-33.3); Mean Platelet Volume 9.3 fL (9.4-12.4); Monocytes # 0.8 K/mcL (0.0-1.3); Monocytes % 9.4 %; Platelet Count 226 K/mcL (140-400); Red Blood Count 3.58 M/mcL (4.19-5.50); Red Cell Distribution Width 13.2 % (11.5-14.5); Segmented Neutrophils % 57.6 %; White Blood Count 8.7 K/mcL (4.3-11.1)
[2022-04-06] MEDS: Piperacillin/Tazobactam 3.375 GM in 0.9 % Sodium Chloride Mini Bag 100 ML IVPB SCH ×3 (05:08→21:33)
[2022-04-06 05:15] LABS: Heparin anti-factor XA UFH 0.2 IU/mL (0.30-0.70); INR 1.2; Prothrombin Time 13.6 Seconds (9.4-12.1)
[2022-04-06 05:30] LABS: Magnesium 2.4 mg/dL (1.6-2.6); Phosphorous 4.2 mg/dL (2.7-4.5); Potassium 3.7 mEq/L (3.5-5.1)
[2022-04-06] MEDS ORDERED: Insulin LISPRO 300 UNITS/3 ML VIAL SUBQ SCH (06:00)
[2022-04-06] MEDS: Insulin DETEMIR 100 UNIT/ML X5UNITS SUBQ SCH ×2 (08:00→22:07)
[2022-04-06] MEDS ORDERED: *HR* OxyCODONE Immed Rel 5 MG TABLET PO ONE (10:18)
[2022-04-06] MEDS ORDERED: Vancomycin 1,500 MG/265 ML IV.SOLN IVPB SCH (11:00)
[2022-04-06] MEDS ORDERED: lisinopriL 5 MG TABLET PO SCH (12:00)
[2022-04-06] MEDS: Loratadine 10 MG TABLET PO SCH (12:52)
[2022-04-06] MEDS: Insulin LISPRO 300 UNITS/3 ML VIAL SUBQ SCH ×2 (12:54→17:30)
[2022-04-06] MEDS: Vancomycin 1,500 MG/265 ML IV.SOLN IVPB SCH (14:01)
[2022-04-06] MEDS: *HR* Heparin 5,000 UNIT/ML VIAL SQ SCH (17:30)
[2022-04-06] MEDS ORDERED: Vancomycin 1,750 MG in 0.9 % Sodium Chloride 250 ML IVPB SCH (20:00)
[2022-04-07] MEDS: Vancomycin 1,500 MG/265 ML IV.SOLN IVPB SCH ×2 (02:51→14:21)
[2022-04-07] MEDS: Piperacillin/Tazobactam 3.375 GM in 0.9 % Sodium Chloride Mini Bag 100 ML IVPB SCH ×3 (05:43→21:52)
[2022-04-07] MEDS: *HR* Heparin 5,000 UNIT/ML VIAL SQ SCH (05:43)
[2022-04-07 07:08] LABS: Basophils % 0.3 %; Eosinophils # 0.3 K/mcL (0.0-0.6); Eosinophils % 3.8 %; Hematocrit 34.8 % (37.5-50.1); Hemoglobin 10.6 g/dL (12.9-16.9); Immature Granulocytes % 0.7 % (0-4); Lymphocytes # 1.9 K/mcL (0.6-4.6); Lymphocytes % 27.5 %; Mean Corpuscular HGB Conc 30.5 g/dL (31.6-35.5); Mean Corpuscular Hemoglobin 29.6 pg (28.0-33.3); Mean Corpuscular Volume 97.2 fL (83.0-100.0); Mean Platelet Volume 9.6 fL (9.4-12.4); Monocytes # 0.6 K/mcL (0.0-1.3); Monocytes % 8.1 %; Platelet Count 218 K/mcL (140-400); Red Blood Count 3.58 M/mcL (4.19-5.50); Red Cell Distribution Width 13.2 % (11.5-14.5); Segmented Neutrophils % 59.6 %; White Blood Count 6.8 K/mcL (4.3-11.1)
[2022-04-07] MEDS: Insulin LISPRO 300 UNITS/3 ML VIAL SUBQ SCH ×2 (07:49→16:15)
[2022-04-07 08:08] LABS: Calcium 8.9 mg/dL (8.6-10.3); Magnesium 2.4 mg/dL (1.6-2.6); Potassium 4.2 mEq/L (3.5-5.1)
[2022-04-07] MEDS: Loratadine 10 MG TABLET PO SCH (08:12)
[2022-04-07] MEDS: Insulin DETEMIR 100 UNIT/ML X5UNITS SUBQ SCH ×2 (08:12→21:54)
[2022-04-07] MEDS: Gabapentin 400 MG CAPSULE PO SCH ×3 (08:13→21:52)
[2022-04-07] MEDS: *HR* OxyCODONE Immed Rel 5 MG TABLET PO PRN ×3 (08:20→21:51)
[2022-04-07] MEDS ORDERED: Lidocaine -MPF 2% 2 ML VIAL ONE (09:02)
[2022-04-07] MEDS ORDERED: Furosemide 20 MG/2 ML VIAL IVP SCH (10:19)
[2022-04-07] MEDS ORDERED: *HR* FentaNYL (PF) 100 MCG/2 ML VIAL ONE (10:34)
[2022-04-07] MEDS ORDERED: Lidocaine -MPF 1% 5 ML AMPUL ONE (10:39)
[2022-04-07] MEDS ORDERED: *HR* Propofol 200 MG/20 ML VIAL IVP ONE ×2 (10:59→11:39)
[2022-04-07] MEDS ORDERED: Ringers Solution, Lactated 1,000 ML IVC SCH ×2 (11:00→12:45)
[2022-04-07] MEDS ORDERED: Ipratropium Neb 0.5 MG NEBULIZER IH PRN (12:45)
[2022-04-07] MEDS ORDERED: *HR* Dextrose 50 % in Water (Syg) 50 ML SYRINGE IVP PRN (12:45)
[2022-04-07] MEDS ORDERED: Melatonin 3 MG TABLET PO PRN (12:45)
[2022-04-07] MEDS ORDERED: Gadolinium Contrast Agent (WT Based) IV PRN ×2 (12:45)
[2022-04-07] MEDS ORDERED: Ondansetron ODT 4 MG TAB.RAPDIS SL PRN (12:45)
[2022-04-07] MEDS ORDERED: Dextrose Gel 15 GM/37.5 ML TUBE PO PRN ×2 (12:45)
[2022-04-07] MEDS ORDERED: D5% in Water 1,000 ML IVC PRN (12:45)
[2022-04-07] MEDS ORDERED: Naloxone 0.4 MG/ML INJ IVP PRN (12:45)
[2022-04-07] MEDS ORDERED: *HR* Heparin 5,000 UNIT/ML VIAL SQ SCH (18:00)
[2022-04-07] MEDS ORDERED: Finasteride 5 MG TABLET PO SCH (21:00)
[2022-04-07] MEDS: Finasteride 5 MG TABLET PO SCH (21:51)
[2022-04-07] MEDS: rOPINIRole 1 MG TABLET PO SCH (21:52)
[2022-04-07] MEDS ORDERED: *HR* HYDROmorphone 2 MG/ML SYRINGE IVP ONE (23:20)
[2022-04-07] MEDS ORDERED: *HR* HYDROmorphone (PF) 1 MG/ML SYRINGE IVP ONE (23:45)
[2022-04-08] MEDS: Vancomycin 1,500 MG/265 ML IV.SOLN IVPB SCH ×2 (03:06→15:13)
[2022-04-08] MEDS: Piperacillin/Tazobactam 3.375 GM in 0.9 % Sodium Chloride Mini Bag 100 ML IVPB SCH ×3 (06:15→21:38)
[2022-04-08] MEDS: *HR* OxyCODONE Immed Rel 5 MG TABLET PO PRN ×2 (06:15→13:53)
[2022-04-08 08:31] LABS: Basophils % 0.4 %; Eosinophils # 0.3 K/mcL (0.0-0.6); Hematocrit 33.8 % (37.5-50.1); Hemoglobin 10.4 g/dL (12.9-16.9); Immature Granulocytes % 0.4 % (0-4); Lymphocytes # 1.8 K/mcL (0.6-4.6); Lymphocytes % 21.1 %; Mean Corpuscular HGB Conc 30.8 g/dL (31.6-35.5); Mean Corpuscular Volume 97.4 fL (83.0-100.0); Mean Platelet Volume 9.4 fL (9.4-12.4); Monocytes # 0.8 K/mcL (0.0-1.3); Monocytes % 9.4 %; Neutrophils # 5.5 K/mcL (1.6-8.9); Platelet Count 196 K/mcL (140-400); Red Blood Count 3.47 M/mcL (4.19-5.50); Red Cell Distribution Width 13.2 % (11.5-14.5); Segmented Neutrophils % 65.7 %; White Blood Count 8.4 K/mcL (4.3-11.1)
[2022-04-08 08:50] LABS: Magnesium 2.1 mg/dL (1.6-2.6); Phosphorous 2.8 mg/dL (2.7-4.5); Potassium 4.5 mEq/L (3.5-5.1)
[2022-04-08] MEDS: Gabapentin 400 MG CAPSULE PO SCH ×3 (10:06→21:38)
[2022-04-08] MEDS: Apixaban 5 MG TABLET PO SCH ×2 (10:07→21:37)
[2022-04-08] MEDS: Loratadine 10 MG TABLET PO SCH (10:07)
[2022-04-08] MEDS: Furosemide 20 MG/2 ML VIAL IVP SCH (10:08)
[2022-04-08] MEDS: Insulin LISPRO 300 UNITS/3 ML VIAL SUBQ SCH ×3 (10:08→17:35)
[2022-04-08] MEDS: Insulin DETEMIR 100 UNIT/ML X5UNITS SUBQ SCH ×2 (10:11→21:39)
[2022-04-08] MEDS: lisinopriL 5 MG TABLET PO SCH (12:34)
[2022-04-08] MEDS ORDERED: Ticagrelor [Brilinta] 60 MG Tablet PO SCH (21:00)
[2022-04-08] MEDS: Finasteride 5 MG TABLET PO SCH (21:37)
[2022-04-08] MEDS: rOPINIRole 1 MG TABLET PO SCH (21:37)
[2022-04-09] MEDS: *HR* OxyCODONE Immed Rel 5 MG TABLET PO PRN ×4 (00:44→20:30)
[2022-04-09 01:45] LABS: Basophils % 0.3 %; Eosinophils # 0.3 K/mcL (0.0-0.6); Eosinophils % 4.1 %; Hematocrit 35.2 % (37.5-50.1); Immature Granulocytes % 0.5 % (0-4); Lymphocytes # 1.7 K/mcL (0.6-4.6); Lymphocytes % 22.3 %; Mean Corpuscular HGB Conc 31.3 g/dL (31.6-35.5); Mean Corpuscular Hemoglobin 30.1 pg (28.0-33.3); Mean Corpuscular Volume 96.2 fL (83.0-100.0); Mean Platelet Volume 9.7 fL (9.4-12.4); Monocytes # 0.8 K/mcL (0.0-1.3); Monocytes % 9.7 %; Neutrophils # 4.9 K/mcL (1.6-8.9); Platelet Count 185 K/mcL (140-400); Red Blood Count 3.66 M/mcL (4.19-5.50); Red Cell Distribution Width 13.1 % (11.5-14.5); Segmented Neutrophils % 63.1 %; White Blood Count 7.8 K/mcL (4.3-11.1)
[2022-04-09 02:10] LABS: Calcium 9.1 mg/dL (8.6-10.3); Magnesium 1.9 mg/dL (1.6-2.6); Phosphorous 2.3 mg/dL (2.7-4.5); Potassium 4.2 mEq/L (3.5-5.1)
[2022-04-09] MEDS: Piperacillin/Tazobactam 3.375 GM in 0.9 % Sodium Chloride Mini Bag 100 ML IVPB SCH ×3 (06:18→22:16)
[2022-04-09] MEDS: Apixaban 5 MG TABLET PO SCH ×2 (07:46→20:29)
[2022-04-09] MEDS: Gabapentin 400 MG CAPSULE PO SCH ×3 (07:46→20:30)
[2022-04-09] MEDS: Loratadine 10 MG TABLET PO SCH (07:46)
[2022-04-09] MEDS: Furosemide 20 MG/2 ML VIAL IVP SCH (07:47)
[2022-04-09] MEDS: Insulin LISPRO 300 UNITS/3 ML VIAL SUBQ SCH ×3 (07:47→19:48)
[2022-04-09] MEDS: Insulin DETEMIR 100 UNIT/ML X5UNITS SUBQ SCH ×2 (07:48→22:17)
[2022-04-09] MEDS: lisinopriL 5 MG TABLET PO SCH (12:08)
[2022-04-09] MEDS: rOPINIRole 1 MG TABLET PO SCH (20:29)
[2022-04-09] MEDS: Finasteride 5 MG TABLET PO SCH (20:29)
[2022-04-09] MEDS ORDERED: Psyllium 1 PACKET POWD.PACK PO PRN (21:00)
[2022-04-09] MEDS: Sennosides/Docusate Sodium TABLET PO SCH (22:16)
[2022-04-10] MEDS: *HR* OxyCODONE Immed Rel 5 MG TABLET PO PRN ×4 (03:33→21:26)
[2022-04-10] MEDS: Piperacillin/Tazobactam 3.375 GM in 0.9 % Sodium Chloride Mini Bag 100 ML IVPB SCH ×3 (06:10→18:50)
[2022-04-10 06:18] LABS: Basophils % 0.4 %; Eosinophils # 0.4 K/mcL (0.0-0.6); Eosinophils % 4.5 %; Hematocrit 32.6 % (37.5-50.1); Hemoglobin 10.5 g/dL (12.9-16.9); Immature Granulocytes % 0.5 % (0-4); Lymphocytes # 1.9 K/mcL (0.6-4.6); Lymphocytes % 23.4 %; Mean Corpuscular HGB Conc 32.2 g/dL (31.6-35.5); Mean Corpuscular Hemoglobin 30.2 pg (28.0-33.3); Mean Corpuscular Volume 93.7 fL (83.0-100.0); Mean Platelet Volume 9.5 fL (9.4-12.4); Monocytes # 0.8 K/mcL (0.0-1.3); Monocytes % 9.4 %; Neutrophils # 5.1 K/mcL (1.6-8.9); Platelet Count 180 K/mcL (140-400); Red Blood Count 3.48 M/mcL (4.19-5.50); Red Cell Distribution Width 13.2 % (11.5-14.5); Segmented Neutrophils % 61.8 %; White Blood Count 8.3 K/mcL (4.3-11.1)
[2022-04-10 06:47] LABS: Calcium 9.1 mg/dL (8.6-10.3); Magnesium 1.9 mg/dL (1.6-2.6); Phosphorous 2.9 mg/dL (2.7-4.5); Potassium 3.9 mEq/L (3.5-5.1)
[2022-04-10] MEDS: Furosemide 20 MG/2 ML VIAL IVP SCH (08:21)
[2022-04-10] MEDS: Gabapentin 400 MG CAPSULE PO SCH ×3 (08:22→20:36)
[2022-04-10] MEDS: Loratadine 10 MG TABLET PO SCH (08:22)
[2022-04-10] MEDS: Sennosides/Docusate Sodium TABLET PO SCH ×2 (08:22→20:35)
[2022-04-10] MEDS: Insulin LISPRO 300 UNITS/3 ML VIAL SUBQ SCH ×3 (08:24→18:50)
[2022-04-10] MEDS: Apixaban 5 MG TABLET PO SCH ×2 (08:24→20:36)
[2022-04-10] MEDS: Insulin DETEMIR 100 UNIT/ML X5UNITS SUBQ SCH ×2 (08:29→21:27)
[2022-04-10] MEDS: lisinopriL 5 MG TABLET PO SCH (12:09)
[2022-04-10] MEDS: rOPINIRole 1 MG TABLET PO SCH (20:35)
[2022-04-10] MEDS: Finasteride 5 MG TABLET PO SCH (20:35)
[2022-04-11 05:14] LABS: Basophils % 0.4 %; Eosinophils # 0.4 K/mcL (0.0-0.6); Eosinophils % 4.7 %; Hematocrit 32.9 % (37.5-50.1); Hemoglobin 10.6 g/dL (12.9-16.9); Immature Granulocytes % 0.8 % (0-4); Lymphocytes # 2.1 K/mcL (0.6-4.6); Lymphocytes % 24.6 %; Mean Corpuscular HGB Conc 32.2 g/dL (31.6-35.5); Mean Corpuscular Hemoglobin 29.9 pg (28.0-33.3); Mean Corpuscular Volume 92.9 fL (83.0-100.0); Mean Platelet Volume 9.9 fL (9.4-12.4); Monocytes # 0.7 K/mcL (0.0-1.3); Monocytes % 8.3 %; Neutrophils # 5.1 K/mcL (1.6-8.9); Platelet Count 194 K/mcL (140-400); Red Blood Count 3.54 M/mcL (4.19-5.50); Red Cell Distribution Width 13.2 % (11.5-14.5); Segmented Neutrophils % 61.2 %; White Blood Count 8.4 K/mcL (4.3-11.1)
[2022-04-11 05:31] LABS: Calcium 9.3 mg/dL (8.6-10.3); Magnesium 1.9 mg/dL (1.6-2.6); Phosphorous 2.8 mg/dL (2.7-4.5)
[2022-04-11 07:37] VITALS: BP 134/62; PULSE 59; TEMP 97.8; O2SAT 97
[2022-04-11] MEDS: Insulin DETEMIR 100 UNIT/ML X5UNITS SUBQ SCH (08:44)
[2022-04-11] MEDS: Sennosides/Docusate Sodium TABLET PO SCH (08:44)
[2022-04-11] MEDS: Loratadine 10 MG TABLET PO SCH (08:45)
[2022-04-11] MEDS: Gabapentin 400 MG CAPSULE PO SCH (08:45)
[2022-04-11] MEDS: Furosemide 20 MG/2 ML VIAL IVP SCH (08:46)
[2022-04-11] MEDS: Insulin LISPRO 300 UNITS/3 ML VIAL SUBQ SCH ×2 (08:48→11:59)
[2022-04-11] MEDS: Apixaban 5 MG TABLET PO SCH (08:48)
[2022-04-11] MEDS ORDERED: Doxycycline 100 MG CAPSULE PO SCH (09:00)
[2022-04-11] MEDS: *HR* OxyCODONE Immed Rel 5 MG TABLET PO PRN (11:11)
[2022-04-11] MEDS: lisinopriL 5 MG TABLET PO SCH (12:00)
== END 2022-04-11 12:33 | disposition home or self-care (01) | DRG 617 ==
LOC: EMEROOARM 16:28 → 4WAOSI 04-06 00:23 → SUATTDRO 04-06 00:23 → 4WAOSI 04-06 01:07
PROVIDERS: ADMIT Internal Medicine; ATTEND Internal Medicine